=== PATIENT | female | born 1990 | race African-American/Black ===

== ENCOUNTER 2016-09-15 23:13 | Emergency (ER) | payer OTHER, MEDICAID ==
[~2016-09-15] VITALS: Ht 165.1 cm; Wt 54.5 kg
[~2016-09-15 23:13] MED LIST: ESCI10TA PO; LURA40 PO; TRAZ100T4 PO
[2016-09-15 23:16] VITALS: BP 104/55; PULSE 98; RESP 16; TEMP 97.8; O2SAT 100
[2016-09-16] MEDS ORDERED: LURA40 PO (17:51)
[2016-09-16] MEDS ORDERED: LEXA5TAB PO (17:51)
[2016-09-16] MEDS ORDERED: TRAZ100T4 PO (17:51)
== END 2016-09-16 01:06 | disposition left against medical advice (07) ==
LOC: NEPB 23:13
DX: Z53.21 Procedure and treatment not carried out due to patient leaving prior to being seen by health care provider (principal)
CPT/HCPCS: 99281

== ENCOUNTER 2016-09-16 16:08 | Emergency (ER) | payer MEDICAID, OTHER ==
[~2016-09-16] VITALS: Ht 167.6 cm; Wt 55.0 kg
[2016-09-16 16:09] VITALS: BP 114/61; PULSE 102; RESP 14; TEMP 97.9; O2SAT 99
[2016-09-16] MEDS ORDERED: LEXA5TAB PO (17:51)
[2016-09-16] MEDS ORDERED: TRAZ100T4 PO (17:51)
[2016-09-16] MEDS ORDERED: LURA40 PO (17:51)
== END 2016-09-16 18:50 | disposition left against medical advice (07) ==
LOC: NEPB 16:08 → NETRI 18:50
DX: R68.89 Other general symptoms and signs (principal)
CPT/HCPCS: 99281

== ENCOUNTER 2017-01-02 17:03 | Emergency (ER) | payer MEDICAID ==
[~2017-01-02 17:03] MED LIST changes: -ESCI10TA PO; +LEXA5TAB PO
[2017-01-02 17:06] VITALS: BP 116/57; PULSE 86; RESP 15; TEMP 97.7; O2SAT 100
[2017-01-02] MEDS ORDERED: METR500T10 PO (18:06)
--- NOTE | 2017-01-02 18:06 | PD ---
HPI Chief Complaint Spotting Date Seen: January 02, 2017 Travel History International Travel<30 Days: No Contact w/Intl Traveler<30Days: No Known Affected Area: No History of Present Illness HPI 26yo at 19w5d c/o vaginal spotting this am. Saw a pink spot on underwear this am. No care this but was seen at [facility] with a sonogram for dating. Para: 5 : 7 : 1 History Past Medical History Medical History: Denies Significant Hx Obstetric History Obstetric History Spontaneous vaginal delivery 4, section 1 Past Surgical History Narrative Surgical section Surgical History: No Previous Surgery ( section) Social History Alcohol Use: No Tobacco Use: No Substance Abuse: No Allergies-Medications (Allergen,Severity, Reaction): Coded Allergies: No Known Allergies (Verified , 09/16/16) Per pt. Home Meds Reported Medications Trazodone 100 Mg [id number] Mg PO HS #30 TAB Ref 0 09/16/16 Escitalopram (Lexapro)5 Mg Tab5 Mg PO DAILY #30 TAB Ref 0 09/16/16 Lurasidone (Latuda)40 Mg Tab40 Mg PO BID #30 TAB Ref 0 09/16/16 Review of Systems Except as stated in HPI: all other systems reviewed are Neg Physical Exam Vital Signs Date Time Temp Pulse Resp B/P Pulse Ox O2 Delivery O2 Flow Rate FiO2 01/02/17 17:06 97.7 86 15 116/57 100 Narrative GENERAL: Well-nourished, well-developed patient. SKIN: Warm and dry. HEAD: Normocephalic and atraumatic. EYES: No scleral icterus. No injection or drainage. ENT: No nasal drainage noted. Mucous membranes pink. Airway patent. NECK: Supple, trachea midline. No JVD. CARDIOVASCULAR: Regular rate and rhythm without murmurs, gallops, or rubs. RESPIRATORY: Breath sounds equal bilaterally. No accessory muscle use. BREASTS: Bilateral exam showed no masses , no retractions, no nipple discharge. ABDOMEN/GI: Abdomen soft, non-tender, bowel sounds present, no rebound, no guarding Gravid to [20-] weeks size Fundal Height: [-] GENITOURINARY: External Genitalia: intact and normal in appearance BUS glands: [-Normal] Cervix: [-Obvious bacterial vaginosis noted] Dilatation: [-] Visually closed cervix Effacement: [-] Station: [-] Presentation: [-] Membranes: [intact or ruptured] Uterine Contractions: [-] Absent FHT's: 152 Category: [-] Baseline: [-] Reactive: [-] Variability: [-] Decels: [-] EXTREMITIES: No cyanosis or edema. BACK: Nontender without obvious deformity. No CVA tenderness. NEUROLOGICAL: Awake and alert. Motor and sensory grossly within normal limits. Five out of 5 muscle strength in all muscle groups. Normal speech. Data Data Vital Signs Reviewed: Yes MDM Plan 26-year-old female at 19 weeks 2 days with vaginal spotting earlier this morning none apparent at present time. Bacterial vaginosis Gonorrhea and chlamydia cultures were obtained Recommendations for care were given Patient was considering using a salvage grinder for homebirth which I have cautioned her against due to the possibilities of uterine rupture with a previous section Diagnosis Diagnosis: Primary Impression: 19 weeks gestation of Additional Impressions: Vaginal spotting Bacterial vaginosis Disposition: DISCHARGE HOME Scripts Metronidazole 500 Mg [id number] Mg PO BID #14 TAB Ref 0 Prov:Jaymie Ace MD 01/02/17 Jaymie Ace MD January 02, 2017 18:06
[2017-01-02 20:31] LABS: CHLAMYDIA PCR NOT DETECTED (NOT DETECT); NEISSERIA PCR NOT DETECTED (NOT DETECT)
== END 2017-01-02 19:01 | disposition home or self-care (01) ==
LOC: HOBED 17:03
DX: O26.852 Spotting complicating pregnancy, second trimester (principal); O23.592 Infection of other part of genital tract in pregnancy, second trimester; N76.0 Acute vaginitis; B96.89 Other specified bacterial agents as the cause of diseases classified elsewhere; Z3A.19 19 weeks gestation of pregnancy
CPT/HCPCS: 87491; 87591; 99284

== ENCOUNTER 2017-02-22 19:26 | Emergency (ER) | payer MEDICAID ==
[~2017-02-22 19:26] MED LIST changes: +METR500T10 PO
--- NOTE | 2017-02-22 20:11 | PD ---
HPI Chief Complaint Suprapubic pain Date Seen: Feb 22, 2017 Time Seen: 20:06 Travel History International Travel<30 Days: No Contact w/Intl Traveler<30Days: No Known Affected Area: No History of Present Illness HPI 27-year-old female who is at 26 weeks gestation by estimation based on last menstrual cycle comes in complaining of mild suprapubic pain since yesterday. Pain is mostly during urination and decreases in intensity with rest and patient states that it is not contractions. She denies vaginal discharge vaginal bleeding and she has good movement. Patient has a history of 5 prior vaginal deliveries. Last year patient had a twin gestation with a spontaneous vaginal delivery of the first followed by a section for twin B. She has had no care this Para: 5 : 5 History Past Medical History Narrative Medical Bipolar disorder Asthma on no medication Depression a symptomatically this Obstetric History Obstetric History Spontaneous vaginal delivery 3 followed by a vaginal delivery and a for twins Past Surgical History Narrative Surgical section Family History Family History: Negative Social History Alcohol Use: No Tobacco Use: Yes Substance Abuse: No (treated opioid use in the past patient denies at this , patient has smoked marijuana in the past also denies of ) Allergies-Medications (Allergen,Severity, Reaction): Coded Allergies: No Known Allergies (Verified , 09/16/16) Per pt. Home Meds Active Scripts Metronidazole 500 Mg [id number] Mg PO BID #14 TAB Ref 0 Prov:Jaymie Ace MD 01/02/17 Reported Medications Trazodone 100 Mg [id number] Mg PO HS #30 TAB Ref 0 09/16/16 Escitalopram (Lexapro)5 Mg Tab5 Mg PO DAILY #30 TAB Ref 0 09/16/16 Lurasidone (Latuda)40 Mg Tab40 Mg PO BID #30 TAB Ref 0 09/16/16 Review of Systems Except as stated in HPI: all other systems reviewed are Neg Physical Exam Narrative GENERAL: Well-nourished, well-developed patient. SKIN: Warm and dry. HEAD: Normocephalic and atraumatic. EYES: No scleral icterus. No injection or drainage. ENT: No nasal drainage noted. Mucous membranes pink. Airway patent. NECK: Supple, trachea midline. No JVD. CARDIOVASCULAR: Regular rate and rhythm without murmurs, gallops, or rubs. RESPIRATORY: Breath sounds equal bilaterally. No accessory muscle use. ABDOMEN/GI: Abdomen soft, non-tender, bowel sounds present, no rebound, no guarding Gravid to [-26] weeks size Fundal Height: [-] GENITOURINARY: External Genitalia: intact and normal in appearance BUS glands: [-Normal] Cervix: [Posterior-] Dilatation: [-Closed] Effacement: [-Long] Station: [-High] Presentation: [-Cephalic] Membranes: [intact ] Uterine Contractions: [-Absent] FHT's: Category: [1-] Baseline: [145-] Reactive: [Moderate-] Variability: [Moderate-] Decels: [Absent-] EXTREMITIES: No cyanosis or edema. BACK: Nontender without obvious deformity. No CVA tenderness. NEUROLOGICAL: Awake and alert. Motor and sensory grossly within normal limits. Five out of 5 muscle strength in all muscle groups. Normal speech. Data Data Vital Signs Reviewed: Yes Labs Laboratory Tests Test 02/22/17 19:54 Urine Color YELLOW Urine Turbidity CLEAR Urine pH 6.0 Urine Specific [place] 1.014 Urine Protein TRACE mg/dL Urine Glucose (UA) NEG mg/dL Urine Ketones NEG mg/dL Urine Occult Blood NEG Urine Nitrite NEG Urine Bilirubin NEG Urine Urobilinogen LESS THAN 2.0 MG/DL Urine Leukocyte Esterase NEG Urine RBC 1 /hpf Urine WBC 1 /hpf Urine Squamous Epithelial <1 /hpf Cells Urine Mucus FEW /lpf Microscopic Urinalysis Comment CULT NOT INDICATED MDM Plan 27yo at 26 weeks gestation Discomforts of No care - patient given number and flyer for [facility] to initiate care labs drawn Diagnosis Diagnosis: Primary Impression: 26 weeks gestation of Additional Impressions: No care in current in second trimester Previous delivery affecting , antepartum Disposition: 01 DISCHARGE HOME Jaymie Ace MD Feb 22, 2017 20:11
[2017-02-22 20:20] LABS: BLOOD, URINE NEG (NEG); COMMENT (UR) CULT NOT INDICATED; CULTURE IF INDICATED CULT NOT INDICATED; GLUCOSE,URINE NEG (NEG); KETONE, URINE NEG (NEG); MUCUS URINE FEW /lpf (OCC); NITRITE,URINE NEG (NEG); SQUAMOUS EPITHELIAL CELL URINE <1 /hpf (0-5); URINE COLOR YELLOW (YELLW/STRAW)
[2017-02-22 20:24] LABS: AMPHETAMINE, URINE NEG (NEG); BARBITURATES, URINE NEG (NEG); COCAINE, URINE NEG (NEG)
[2017-02-22 21:05] LABS: AUTOMATED NEUTROPHIL # 5.6 TH/MM3 (1.8-7.7); BASOPHIL % 0.2 % (0.0-2.0); EOSINOPHIL # 0.1 TH/MM3 (0-0.4); EOSINOPHIL % 1.7 % (0.0-4.0); HEMATOCRIT 23.9 % (35.0-46.0); HEMO FLAGS DIFF FINAL; LYMPH % 19.8 % (9.0-44.0); LYMPHOCYTE # 1.6 TH/MM3 (1.0-4.8); MEAN CELL VOLUME 74.1 FL (80.0-100.0); MEAN CORPUSCULAR HEMOGLOBIN 24.1 PG (27.0-34.0); MEAN CORPUSCULAR HGB CONC 32.6 % (32.0-36.0); MONO % 9.8 % (0.0-8.0); NEUT % 68.5 % (16.0-70.0); PLATELET COUNT 239 TH/MM3 (150-450); RED BLOOD COUNT 3.23 MIL/MM3 (4.00-5.30); RED CELL DISTRIBUTION WIDTH 17.1 % (11.6-17.2); WHITE BLOOD COUNT 8.1 TH/MM3 (4.0-11.0)
[2017-02-22 21:37] LABS: RUBELLA IGG ANTIBODY 24.5 IU/mL (10.0-500.0); RUBELLA STATUS IMMUNE (IMMUNE)
[2017-02-25 14:45] LABS: RAPID PLASMA REAGIN SCREEN NON-REACTIVE (NON-REACTVE)
== END 2017-02-22 20:50 | disposition home or self-care (01) ==
LOC: HOBED 19:26
DX: O09.32 Supervision of pregnancy with insufficient antenatal care, second trimester (principal); O34.219 Maternal care for unspecified type scar from previous cesarean delivery; O26.892 Other specified pregnancy related conditions, second trimester; R10.2 Pelvic and perineal pain; Z72.0 Tobacco use; Z86.59 Personal history of other mental and behavioral disorders; Z87.09 Personal history of other diseases of the respiratory system; Z3A.26 26 weeks gestation of pregnancy
CPT/HCPCS: 80074; 80307; 81001; 85025; 86592; 86703; 86762; 86850; 86900; 86901; 99282

== ENCOUNTER 2017-03-15 23:41 | Emergency (ER) | payer MEDICAID ==
--- NOTE | 2017-03-16 00:13 | PD ---
HPI Chief Complaint cramping Date Seen: Mar 16, 2017 Travel History International Travel<30 Days: No Contact w/Intl Traveler<30Days: No History of Present Illness HPI 27-year-old female who is at 30w2d by LMP and a dating [facility] at [facility]. No care. seen in [facility] and labs obtained. Patient presents with c/o cramping. Denies VB, LOF. +very active fetus Para: 5 : 5 History Past Medical History Narrative Medical Bipolar/ADHA Depression Asthma Eczema Tattoo Piercing Substance Abuse Anemia Obstetric History Obstetric History 2011 @ 39 weeks 2012 @ 37 weeks 2014 @ 36 weeks 2016 with for second twin cord prolapse @ 29 weeks Past Surgical History Narrative Surgical 2016 Family History Family History: Negative Social History Alcohol Use: No Tobacco Use: Yes (history of cig, denies current usage) Substance Abuse: Yes (history of THC, denies current usage) Allergies-Medications (Allergen,Severity, Reaction): Coded Allergies: No Known Allergies (Verified , 09/16/16) Per pt. Home Meds Active Scripts Metronidazole 500 Mg [id number] Mg PO BID #14 TAB Ref 0 Prov:Jaymie Ace MD 01/02/17 Reported Medications Trazodone 100 Mg [id number] Mg PO HS #30 TAB Ref 0 09/16/16 Escitalopram (Lexapro)5 Mg Tab5 Mg PO DAILY #30 TAB Ref 0 09/16/16 Lurasidone (Latuda)40 Mg Tab40 Mg PO BID #30 TAB Ref 0 09/16/16 Review of Systems General / Constitutional: No: Fever, Chills Eyes: No: Blurred Vision, Visual changes HENT: No: Headaches, Lightheadedness Cardiovascular: No: Chest Pain or Discomfort, Palpitations Respiratory: No: Cough, Short of Breath Gastrointestinal: Abdominal Pain (cramping), No: Nausea, Vomiting, Diarrhea, Constipation, Loss of Appetite Genitourinary: No: Urgency, Frequency, Dysuria, Discharge, Vaginal Bleeding Musculoskeletal: No: Limited ROM, Weakness Skin: No Rash, No Itching, No Lesions Neurologic: No: Weakness, Coordination Problem Physical Exam Narrative GENERAL: Well-nourished, well-developed patient. NAD SKIN: Warm and dry. HEAD: Normocephalic and atraumatic. EYES: No scleral icterus. No injection or drainage. ENT: No nasal drainage noted. Mucous membranes pink. Airway patent. NECK: trachea midline. No JVD. CARDIOVASCULAR: Regular rate RESPIRATORY: No accessory muscle use. ABDOMEN/GI: Abdomen soft, non-tender, no rebound, no guarding Gravid GENITOURINARY: External Genitalia: intact and normal in appearance SVE: Internal Os closed, External Os 1cm/60%/-2, intact, vertx ffn NEG FHT's: Category: I, reassuring for GA Baseline: 120 Variability: mod Decels: [-] EXTREMITIES: No cyanosis or edema. BACK: Nontender without obvious deformity. No CVA tenderness. NEUROLOGICAL: Awake and alert. Motor and sensory grossly within normal limits. . Normal speech. Data Data Vital Signs Reviewed: Yes Labs Laboratory Tests Test 03/16/17 00:15 Urine Color YELLOW (YELLW/STRAW) Urine Turbidity HAZY (CLEAR) Urine pH 7.0 (5.0-8.5) Urine Specific [place] 1.024 (1.002-1.035) Urine Protein TRACE mg/dL (NEG-TRACE) Urine Glucose (UA) NEG mg/dL (NEG) Urine Ketones NEG mg/dL (NEG) Urine Occult Blood NEG (NEG) Urine Nitrite NEG (NEG) Urine Bilirubin NEG (NEG) Urine Urobilinogen 2.0 MG/DL (LESS THAN 2.0) Urine Leukocyte Esterase MOD (NEG) Urine RBC 1 /hpf (0-3) Urine WBC 2 /hpf (0-5) Urine Squamous Epithelial 2 /hpf (0-5) Cells Urine Amorphous Sediment RARE Urine Bacteria RARE /hpf (NONE) Urine Mucus FEW /lpf (OCC) Microscopic Urinalysis Comment CULT NOT INDICATED Fibronectin NEGATIVE (NEGATIVE) MDM Narrative Course / MDM 30 weeks Only one contraction noted during visit FFn negative No PTL FHT reassuring for GA Hx of and 4 . Desires JAIR No care. labs obtained last [facility] visit. Anemia Plan D/c home PTL precautions Has new ob visit schedule this [facility] at [facility] Diagnosis Diagnosis: Primary Impression: contractions Additional Impression: 30 weeks gestation of Disposition: DISCHARGE HOME Condition: Good WiRosario turner MD Mar 16, 2017 00:13
[2017-03-16 00:45] LABS: BACTERIA, URINE RARE /hpf; BLOOD, URINE NEG (NEG); COMMENT (UR) CULT NOT INDICATED; CULTURE IF INDICATED CULT NOT INDICATED; GLUCOSE,URINE NEG (NEG); KETONE, URINE NEG (NEG); MUCUS URINE FEW /lpf (OCC); NITRITE,URINE NEG (NEG); SQUAMOUS EPITHELIAL CELL URINE 2 /hpf (0-5); URINE COLOR YELLOW (YELLW/STRAW)
== END 2017-03-16 02:30 | disposition home or self-care (01) ==
LOC: HOBED 23:41
DX: O47.03 False labor before 37 completed weeks of gestation, third trimester (principal); Z3A.30 30 weeks gestation of pregnancy
CPT/HCPCS: 81001; 82731; 99284

== ENCOUNTER 2017-04-21 12:13 | Emergency (ER) | payer MEDICAID ==
[~2017-04-21 12:13] MED LIST changes: +ALBUAER3 INH; +FERRTAB2 PO; -LEXA5TAB PO; -LURA40 PO; -METR500T10 PO; -TRAZ100T4 PO
[2017-04-21] MEDS ORDERED: FERRTAB2 PO (12:58)
--- NOTE | 2017-04-21 13:15 | PD ---
HPI Travel History International Travel<30 Days: No Contact w/Intl Traveler<30Days: No Known Affected Area: No History of Present Illness HPI This patient is a 27-year-old 5 para 5 previous twins EDC is May 27, 2017 presently at 34 weeks and 6 days she presents the chief complaint of bleeding which began about an hour ago and contractions Contractions began earlier this morning they're described as crampy lower abdominal pain in the suprapubic area low back and extending into her upper legs the bleeding she describes as a pink discharge that she saw on the tissue when she wiped no bright red vaginal bleeding did not have to put on a pad no rupture of membranes the baby is active no nausea no vomiting no diarrhea or constipation no fever no chills Positive urgency and frequency care with [facility] course is significant for a history of anemia Twins were each weighing 3 pounds second one required for prolapsed cord Low segment transverse and she desires a with this History Past Medical History Narrative Medical Right no known drug allergies History of asthma uses an inhaler Obstetric History Obstetric History Normal spontaneous vaginal delivery 4 Second twin born by for prolapsed cord Past Surgical History Narrative Surgical Family History Narrative Family History Diabetes Social History Alcohol Use: No Tobacco Use: Yes (smokes a half a pack of cigarettes per day) Substance Abuse: No Allergies-Medications (Allergen,Severity, Reaction): Coded Allergies: No Known Allergies (Verified , 04/21/17) Per pt. Home Meds Active Scripts Albuterol 8.5 GM Inh (Proair Hfa 8.5 GM Inh) 90 Mcg/Act Aer, 2 PUFF INH Q4-6H Y for SHORTNESS OF BREATH, #1 INHALER 0 Refills 108 mcg/actuation Prov:Debi Longoria 04/18/17 Multi-Vit/Iron-Folic [id number] C (Ferralet) 90-1-0.012-120 mg Tab, 1 CAPLET PO BID, #60 CAPLET Prov:Debi LongoriaP 04/18/17 Reported Medications Multi-Vit/Iron-Folic [id number] C (Ferralet) 90-1-0.012-120 mg Tab, 1 TAB PO BID 04/21/17 Discontinued Scripts W/O Vit A W/ Fe Carbo (Prenate Mini 18-0.6-0.4-350 mg) 1 Cap Cap Prov:Devyn Cannon MD 03/20/17 Review of Systems General / Constitutional: No: Fever, Weight Gain, Weight Loss, Chills, Other Eyes: No: Diploplia, Blurred Vision, Visual changes, Pain, Photophobia, Other HENT: No: Headaches, Vertigo, Dental Difficulties, Lightheadedness, Other Cardiovascular: No: Irregular Rhythm, Chest Pain or Discomfort, Palpitations, Tachycardia, Syncope, Varicosities, Edema, Cyanosis, Other Respiratory: No: Cough, Short of Breath, Wheezing, Other Gastrointestinal: Abdominal Pain Genitourinary: Urgency, Frequency, Oliguria, Hesitancy, Other (pinkish discharge) Musculoskeletal: Cramping Skin: No Rash, No Itching, No Dryness, No Lumps, No Change in Pigmentation, No Change in Nails, No Alopecia, No Lesions, No Breast Lumps, No Breast Tenderness , No Breast Swelling, No Other Psychiatric: No: Anxiety, Depression, Suicidal Ideations, Disorder of Thought, Mood Disorder, Substance Abuse, Homicidal Ideation, Other Physical Exam Narrative GENERAL: Well-nourished, well-developed patient. Alert oriented 3 and cooperative in no acute distress SKIN: Warm and dry. HEAD: Normocephalic and atraumatic. EYES: No scleral icterus. No injection or drainage. ENT: No nasal drainage noted. Mucous membranes pink. Airway patent. NECK: Supple, trachea midline. No JVD. CARDIOVASCULAR: Regular rate and rhythm without murmurs, gallops, or rubs. RESPIRATORY: Breath sounds equal bilaterally. No accessory muscle use. ABDOMEN/GI: Abdomen soft, non-tender, bowel sounds present, no rebound, no guarding gravid consistent with stated gestational age of 35 weeks soft nontender no palpable contractions no epigastric or right upper quadrant tenderness Gravid to [-] weeks size 35 Fundal Height: [-] GENITOURINARY: Speculum exam is done no blood in the vagina thin the discharge cervix is grossly thickened closed no fluid External Genitalia: intact and normal in appearance BUS glands: [-] Cervix: [-] Thick slightly midline Dilatation: [-] 1 cm Effacement: [-] 0 Station: [-] Ballotable Presentation: [-] Vertex Membranes: [intact Uterine Contractions: [-] Uterine irritability FHT's: Category: [-] 1 Baseline: [-] 140 Reactive: [-] + Variability: [-] Moderate Decels: [-] 0 EXTREMITIES: No cyanosis or edema. 2+ reflexes BACK: Nontender without obvious deformity. No CVA tenderness. NEUROLOGICAL: Awake and alert. Motor and sensory grossly within normal limits. Five out of 5 muscle strength in all muscle groups. Normal speech. Data Data Vital Signs Reviewed: Yes (vital signs are stable blood pressure 106/53 temperature is 98.1 pulse is 83) Orders Orders Urinalysis - C+S If Indicated (04/21/17 12:22) Labs Laboratory Tests Test 04/21/17 12:22 [facility] Medical Record Reviewed: Yes Interpretation(s) 27-year-old 5 para 5 at 34 weeks and 6 days Not in labor History of a previous low segment transverse section Rule out UTI [place] Hemorrhagic cystitis Narrative Course / MDM Patient feeling somewhat better Urinalysis shows moderate amount of blood rbc's WBCs large amount of leukocyte esterase Indicating a possible hemorrhagic cystitis Will treat with Keflex 500 mg by mouth 3 times a day for 7 days Discharge home By mouth fluid hydration Warm tub baths kick counts Follow-up with [facility] in the a.m. Reexamination of the cervix demonstrates no change She has a category 1 tracing no contractions Bedside ultrasound was done it is a vertex presentation BPD measures 8.45 that equals 34 weeks Anterior grade 2-3 placenta CARA is 9 Positive breathing Positive flexion Positive tone Baseline heart rate of 150 on ultrasound Three-vessel cord No evidence of abruption 10 out of 10 biophysical profile Plan External monitoring By mouth fluid hydration Urinalysis Diagnosis Diagnosis: Primary Impression: 34 weeks gestation of Additional Impression: Hemorrhagic cystitis Disposition: DISCHARGE HOME Condition: Stable Shari Valentino MD Apr 21, 2017 13:15
[2017-04-21 13:32] LABS: BACTERIA, URINE RARE /hpf; BLOOD, URINE MOD (NEG); GLUCOSE,URINE NEG (NEG); KETONE, URINE NEG (NEG); MUCUS URINE FEW /lpf (OCC); NITRITE,URINE NEG (NEG); SQUAMOUS EPITHELIAL CELL URINE 3 /hpf (0-5); URINE COLOR YELLOW (YELLW/STRAW)
[2017-04-21 13:33] LABS: COMMENT (UR) CULT NOT INDICATED; CULTURE IF INDICATED CULT NOT INDICATED
== END 2017-04-21 14:25 | disposition home or self-care (01) ==
LOC: HOBED 12:13
DX: O47.03 False labor before 37 completed weeks of gestation, third trimester (principal); O23.13 Infections of bladder in pregnancy, third trimester; Z3A.34 34 weeks gestation of pregnancy
CPT/HCPCS: 59025; 76815; 80307; 81001

== ENCOUNTER 2017-04-28 17:39 | Inpatient (IN) | payer MEDICAID ==
[2017-04-28] VITALS (10 sets, daily range): BP systolic 96–119; BP diastolic 49–88; PULSE 64–102; RESP 16–18; TEMP 97.9
[~2017-04-28] VITALS: Ht 162.6 cm; Wt 65.8 kg
[2017-04-28] MEDS ORDERED: OXYTOCIN 30 UNITS-500ML PREMIX 500 ML ONE (18:03)
--- NOTE | 2017-04-28 18:12 | PD ---
HPI Travel History International Travel<30 Days: No Contact w/Intl Traveler<30Days: No (Obdulia Quintanilla MD R1) History of Present Illness HPI 27 yr old at 35 weeks and 6 days presented to OB ED with complaints of contractions. Found to be at 9 cm on cervical exam with bulging bag. AROM was preformed. Admitted directly and delivered precipitously. See delivery note for delivery details. care with [facility] course is significant for a history of anemia. She also reports a hx of asthma for which she takes albuterol as needed. She had no other complications during this to report. Twins were each weighing 3 pounds second one required for prolapsed cord (Obdulia Quintanilla MD) History Past Medical History Narrative Medical History of Asthma Anemia (Obdulia Quintanilla MD) Obstetric History Obstetric History Normal spontaneous vaginal delivery 4 Second twin born by for prolapsed cord (Obdulia Quintanilla MD) Past Surgical History Narrative Surgical (Odbulia Quintanilla MD) Family History Narrative Family History Diabetes (Obdulia Quintanilla MD) Social History Narrative Social History No alcohol use Smokes 2-3 cigarettes per day per patient, per EMR smokes half a pack per day Denies illicit drug use (Obdulia Quintanilla MD) Allergies-Medications (Allergen,Severity, Reaction): Coded Allergies: No Known Allergies (Verified , 04/28/17) Per pt. Home Meds Active Scripts Albuterol 8.5 GM Inh (Proair Hfa 8.5 GM Inh) 90 Mcg/Act Aer, 2 PUFF INH Q4-6H Y for SHORTNESS OF BREATH, #1 INHALER 0 Refills 108 mcg/actuation Prov:Debi Longoria 04/18/17 Multi-Vit/Iron-Folic Dsyk-N59-Ghe C (Ferralet) 90-1-0.012-120 mg Tab, 1 CAPLET PO BID, #60 CAPLET Prov:Debi Longoria 04/18/17 Reported Medications Multi-Vit/Iron-Folic [id number] C (Ferralet) 90-1-0.012-120 mg Tab, 1 TAB PO BID 04/21/17 Discontinued Scripts W/O Vit A W/ Fe Carbo (Prenate Mini 18-0.6-0.4-350 mg) 1 Cap Cap Prov:Devyn Cannon MD 03/20/17 Review of Systems Except as stated in HPI: all other systems reviewed are Neg (Obdulia Quintanilla MD R1) Physical Exam Narrative GENERAL: Well-nourished, well-developed patient. SKIN: Warm and dry. HEAD: Normocephalic and atraumatic. EYES: No scleral icterus. No injection or drainage. ENT: No nasal drainage noted. Mucous membranes pink. Airway patent. NECK: Supple, trachea midline. No JVD. CARDIOVASCULAR: Warm and well perfused. RESPIRATORY: No accessory muscle use. ABDOMEN/GI: Gravid to 36 weeks size GENITOURINARY: External Genitalia: intact and normal in appearance Cervix: [-] Dilatation: [9] Effacement: [-] Station: [-] Presentation: [-] Membranes: s/p AROM Uterine Contractions: [-] FHT's: Category: [-] Baseline: [-] Reactive: [-] Variability: [-] Decels: [-] EXTREMITIES: No edema. NEUROLOGICAL: Awake and alert. Motor and sensory grossly within normal limits. Normal speech. (Obdulia Quintanilla MD R1) Data Data Orders Orders Ob (2e) Additional Admit Info (04/28/17 17:51) Oxytocin 30 Units-500ml Premix (Pitocin (04/28/17 18:03) Vital Signs (Adult) .Per protocol (04/28/17 18:02) Heart (04/28/17 18:02) Amnioinfusion (04/28/17 18:02) Urinary Catheter Management .ONCE (04/28/17 18:02) Complete Blood Count With Diff (04/28/17 18:02) Hold Clot (04/28/17 18:02) Abo/Rh Blood Type (04/28/17 18:02) Urinalysis - C+S If Indicated (04/28/17 18:02) Resp Oxygen Non Rebreathe Mask (04/28/17 ) ^ Epidural / Intrathecal Infus (04/28/17 18:02) Specimen To Be Collected PRN (04/28/17 18:02) Admit To Inpatient (04/28/17 ) (Obdulia Quintanilla MD R1) MDM Medical Record Reviewed: Yes Plan 27 yr old at 35 weeks and 6 days presented to OB ED with complaints of contractions. - Patient directly admitted to L & D. - labs reviewed: GBS unknown, Hep panel neg, RPR non-reactive, GC/ chlamydia neg, HIV neg, Rubella immune - Patient is now s/p with no complications (Obdulia Quintanilla MD R1) Attending Attestation Patient seen and evaluated with resident under direct supervision, agree with assessment and plan. (Gaurang York MD) Diagnosis Diagnosis: Primary Impression: 36 weeks gestation of Obdulia Quintanilla MD R1 Apr 28, 2017 18:12 Gaurang York MD Apr 28, 2017 19:49
--- NOTE | 2017-04-28 18:14 | PD.OB.DELI ---
Weeks gestation: 34 Gest age assessed date: Apr 28, 2017 Gest age assessed time: 18:00 Pt started active labor?: Yes Medical induction of labor?: No Artificial rupture of membrane: Yes Anesthesia: None Episiotomy: None Vaginal Delivery: Normal, Precipitous Presentation: Occiput anterior Nuchal Cord: None Delayed cord clamping (45 sec): Yes : Female Delivery date: Apr 28, 2017 Delivery time: 18:01 One Minute : 9 Weight: 3195 grams Placenta: Spontaneous delivery, Intact, 3 vessel cord Laceration: No lacerations Estimated blood loss: < 500 cc Additional Information 27 year old delivered vaginally over an intact perineum at 35 weeks and 6 days. Delivery was precipitous. No vaginal lacerations. Placenta was delivered spontaneously, intact, with a 3-vessel cord. Apgars were 9/9. weight 3195 grams. EBL < 500 cc. (Oscar Chua MD R2) Additional Information I attended and assisted with this delivery. (Gaurang York MD) Oscar Chua MD R2 Apr 28, 2017 18:14 Gaurang York MD Apr 28, 2017 19:50
[2017-04-28] MEDS ORDERED: OXYTOCIN 30 UNITS-500ML PREMIX 500 ML IV SCH (18:15)
[2017-04-28] MEDS ORDERED: DIPHTH/TETANUS/ACEL PERTUSSIS (BOOSTER) 0.5 ML VIAL/PFS IM ONE (18:15)
[2017-04-28] MEDS ORDERED: WITCH HAZEL 50%/GLYCERIN 12.5% 40 PAD JAR TOPICAL PRN (18:15)
[2017-04-28] MEDS ORDERED: ONDANSETRON ODT 4 MG TAB PO PRN (18:15)
[2017-04-28] MEDS ORDERED: ZOLPIDEM TARTRATE 5 MG TAB PO PRN (18:15)
[2017-04-28] MEDS ORDERED: ACETAMINOPHEN 325 MG TAB PO PRN (18:15)
[2017-04-28] MEDS ORDERED: MEASLES, MUMPS, RUBELLA VACCINE 0.5 ML VIAL SQ ONE (18:15)
[2017-04-28] MEDS ORDERED: SODIUM CHLORIDE 0.9% FLUSH 10 ML FLUSH IV FLUSH PRN (18:15)
[2017-04-28] MEDS ORDERED: ALUMINUM/MAGNESIUM/SIMETH 30 ML CUP PO PRN (18:15)
[2017-04-28] MEDS ORDERED: BENZOCAINE 20% TOPICAL SPRAY 60 ML CAN TOPICAL PRN (18:15)
[2017-04-28 18:22] LABS: BASOPHIL # 0.1 TH/MM3 (0-0.2); BASOPHIL % 0.6 % (0.0-2.0); EOSINOPHIL # 0.1 TH/MM3 (0-0.4); EOSINOPHIL % 0.5 % (0.0-4.0); HEMATOCRIT 29.6 % (35.0-46.0); HEMO FLAGS DIFF FINAL; LYMPH % 18.1 % (9.0-44.0); LYMPHOCYTE # 1.9 TH/MM3 (1.0-4.8); MEAN CELL VOLUME 69.5 FL (80.0-100.0); MEAN CORPUSCULAR HEMOGLOBIN 22.1 PG (27.0-34.0); MEAN CORPUSCULAR HGB CONC 31.8 % (32.0-36.0); MONO % 5.5 % (0.0-8.0); NEUT % 75.3 % (16.0-70.0); PLATELET COUNT 305 TH/MM3 (150-450); RED BLOOD COUNT 4.26 MIL/MM3 (4.00-5.30); RED CELL DISTRIBUTION WIDTH 19.5 % (11.6-17.2); WHITE BLOOD COUNT 10.6 TH/MM3 (4.0-11.0)
[2017-04-28 18:23] LABS: BLOOD, URINE MOD (NEG); COMMENT (UR) CULT NOT INDICATED; CULTURE IF INDICATED CULT NOT INDICATED; GLUCOSE,URINE NEG (NEG); KETONE, URINE 40 mg/dL (NEG); NITRITE,URINE NEG (NEG); PH, URINE 6.5 (5.0-8.5); SQUAMOUS EPITHELIAL CELL URINE 2 /hpf (0-5); URINE COLOR LIGHT-YELLOW (YELLW/STRAW)
[2017-04-28] MEDS: oxyCODONE/ACETAMINOPHEN 5 MG/325 MG TAB PO PRN ×2 (18:39→22:44)
[2017-04-28] MEDS: IBUPROFEN 600 MG TAB PO PRN (18:40)
--- NOTE | 2017-04-28 18:44 | HHI.HP ---
HPI Travel History International Travel<30 Days: No Contact w/Intl Traveler<30Days: No (Obdulia Quintanilla MD R1) History of Present Illness HPI 27 yr old at 35 weeks and 6 days presented to OB ED with complaints of contractions. Found to be at 9 cm on cervical exam with bulging bag. AROM was preformed. Admitted directly and delivered precipitously. See delivery note for delivery details. care with care for women course is significant for a history of anemia. She also reports a hx of asthma for which she takes albuterol as needed. She had no other complications during this to report. Twins were each weighing 3 pounds second one required for prolapsed cord (Obdulia Quintanilla MD) History Past Medical History Narrative Medical History of Asthma (uses inhaler) Anemia (Obdulia Quintanilla MD) Obstetric History Obstetric History Normal spontaneous vaginal delivery 4 Second twin born by for prolapsed cord (Obdulia Quintanilla MD) Past Surgical History Narrative Surgical (Obdulia Quintanilla MD) Family History Narrative Family History Diabetes (Obdulia Quintanilla MD) Social History Narrative Social History No alcohol use Smokes 2-3 cigarettes per day per patient, per EMR smokes half a pack per day Denies illicit drug use (Obdulia Quintanilla MD) Allergies-Medications (Allergen,Severity, Reaction): Coded Allergies: No Known Allergies (Verified , 04/28/17) Per pt. Home Meds Active Scripts Albuterol 8.5 GM Inh (Proair Hfa 8.5 GM Inh) 90 Mcg/Act Aer, 2 PUFF INH Q4-6H Y for SHORTNESS OF BREATH, #1 INHALER 0 Refills 108 mcg/actuation Prov:Debi Longoria 04/18/17 Multi-Vit/Iron-Folic Uomd-B37-Jsw C (Ferralet) 90-1-0.012-120 mg Tab, 1 CAPLET PO BID, #60 CAPLET Prov:Debi Longoria 04/18/17 Reported Medications Multi-Vit/Iron-Folic Fmdk-B26-Tya C (Ferralet) 90-1-0.012-120 mg Tab, 1 TAB PO BID 04/21/17 Discontinued Scripts W/O Vit A W/ Fe Carbo (Prenate Mini 18-0.6-0.4-350 mg) 1 Cap Cap Prov:Devyn Cannon MD 03/20/17 Physical Exam Vital Signs Date Time Temp Pulse Resp B/P (MAP) Pulse Ox O2 Delivery O2 Flow Rate FiO2 04/28/17 18:20 16 04/28/17 18:16 84 96/80 (85) 04/28/17 18:11 102 110/88 (95) Narrative GENERAL: Well-nourished, well-developed patient. SKIN: Warm and dry. HEAD: Normocephalic and atraumatic. EYES: No scleral icterus. No injection or drainage. ENT: No nasal drainage noted. Mucous membranes pink. Airway patent. NECK: Supple, trachea midline. No JVD. CARDIOVASCULAR: Warm and well perfused. RESPIRATORY: No accessory muscle use. ABDOMEN/GI: Gravid to 36 weeks size GENITOURINARY: External Genitalia: intact and normal in appearance Cervix: [-] Dilatation: [9] Effacement: [-] Station: [-] Presentation: [-] Membranes: s/p AROM Uterine Contractions: [-] FHT's: Category: [-] Baseline: [-] Reactive: [-] Variability: [-] Decels: [-] EXTREMITIES: No edema. NEUROLOGICAL: Awake and alert. Motor and sensory grossly within normal limits. Normal speech. (Obdulia Quintanilla MD R1) Caprini VTE Risk Assessment Caprini VTE Risk Assessment: No/Low Risk (score <= 1) Caprini Risk Assessment Model Point Value = 1 Point Value = 2 Point Value = 3 Point Value = 5 Age 41-60 Minor surgery BMI > 25 kg/m2 Swollen legs Varicose veins or History of unexplained or recurrent spontaneous Oral contraceptives or hormone replacement Sepsis (< 1 month) Serious lung disease, including pneumonia (< 1 month) Abnormal pulmonary function Acute myocardial infarction Congestive heart failure (< 1 month) History of inflammatory bowel disease Medical patient at bed rest Age 61-74 Arthroscopic surgery Major open surgery (> 45 min) Laparoscopic surgery (> 45 min) Malignancy Confined to bed (> 72 hours) Immobilizing plaster cast Central venous access Age >= 75 History of VTE Family history of VTE Factor V Leiden Prothrombin [id number] Lupus anticoagulant Anticardiolipin antibodies Elevated serum homocysteine Heparin-induced thrombocytopenia Other congenital or acquired thrombophilia Stroke (< 1 month) Elective arthroplasty Hip, pelvis, or leg fracture Acute spinal cord injury (< 1 month) Prophylaxis Regimen Total Risk Factor Score Risk Level Prophylaxis Regimen 0-1 Low Early ambulation 2 Moderate Order ONE of the following: *Sequential Compression Device (SCD) *Heparin 5000 units SQ BID 3-4 Higher Order ONE of the following medications: *Heparin 5000 units SQ TID *Enoxaparin/Lovenox 40 mg SQ daily (WT < 150 kg, CrCl > 30 mL/min) *Enoxaparin/Lovenox 30 mg SQ daily (WT < 150 kg, CrCl > 10-29 mL/min) *Enoxaparin/Lovenox 30 mg SQ BID (WT < 150 kg, CrCl > 30 mL/min) AND/OR *Sequential Compression Device (SCD) 5 or more Highest Order ONE of the following medications: *Heparin 5000 units SQ TID (Preferred with Epidurals) *Enoxaparin/Lovenox 40 mg SQ daily (WT < 150 kg, CrCl > 30 mL/min) *Enoxaparin/Lovenox 30 mg SQ daily (WT < 150 kg, CrCl > 10-29 mL/min) *Enoxaparin/Lovenox 30 mg SQ BID (WT < 150 kg, CrCl > 30 mL/min) AND *Sequential Compression Device (SCD) (Obdulia Quintanilla MD R1) Data Data Orders Orders Ob (2e) Additional Admit Info (04/28/17 17:51) Oxytocin 30 Units-500ml Premix (Pitocin (04/28/17 18:03) Vital Signs (Adult) .Per protocol (04/28/17 18:02) Heart (04/28/17 18:02) Amnioinfusion (04/28/17 18:02) Urinary Catheter Management .ONCE (04/28/17 18:02) Complete Blood Count With Diff (04/28/17 18:02) Hold Clot (04/28/17 18:02) Abo/Rh Blood Type (04/28/17 18:02) Urinalysis - C+S If Indicated (04/28/17 18:02) Resp Oxygen Non Rebreathe Mask (04/28/17 ) ^ Epidural / Intrathecal Infus (04/28/17 18:02) Specimen To Be Collected PRN (04/28/17 18:02) Admit To Inpatient (04/28/17 ) Vital Signs (Adult) .QSHIFT (04/28/17 18:14) Activity Oob Ad Skylar (04/28/17 18:14) Ice / Cold Pack PRN (04/28/17 18:14) Discontinue Iv (04/28/17 18:14) Sitz Bath PRN (04/28/17 18:14) ^ Massage (04/28/17 18:14) ^ Rhogam (04/28/17 18:14) Urinary Catheter Management .PRN (04/28/17 18:14) Diet Regular Basic (04/28/17 Dinner) Sodium Chloride 0.9% Flush (Ns Flush) (04/28/17 21:00) Sodium Chloride 0.9% Flush (Ns Flush) (04/28/17 18:15) Oxytocin 30 Units-500ml Premix (Pitocin (04/28/17 18:15) Acetaminophen (Tylenol) (04/28/17 18:15) Ibuprofen (Motrin) (04/28/17 18:15) Oxycodone-Acetamin 5-325 Mg (Percocet (04/28/17 18:15) Oxycodone-Acetamin 5-325 Mg (Percocet (04/28/17 18:15) Benzocaine 20% Top Spr (Americaine 20% T (04/28/17 18:15) Witch Malinda-Glycerin Pad (Tucks Pads) (04/28/17 18:15) Docusate Sodium-Senna (Rosamaria-Colace) (04/28/17 18:15) Zolpidem (Ambien) (04/28/17 18:15) Al-Mag Hy-Si 40-40-4 Mg/Ml Liq (Mag-Al P (04/28/17 18:15) Ondansetron Odt (Zofran Odt) (04/28/17 18:15) Eufuhsp-Ivjyh-Chsekwf Inj (M-M-R Ii Inj) (04/28/17 18:15) Libk-Rnk-Phqfwv (Booster) Inj (Boostrix (04/28/17 18:15) Labs Laboratory Tests Test 04/28/17 17:35 White Blood Count 10.6 Red Blood Count 4.26 Hemoglobin 9.4 Hematocrit 29.6 Mean Corpuscular Volume 69.5 Mean Corpuscular Hemoglobin 22.1 Mean Corpuscular Hemoglobin Concent 31.8 Red Cell Distribution Width 19.5 Platelet Count 305 Mean Platelet Volume 7.8 Neutrophils (%) (Auto) 75.3 Lymphocytes (%) (Auto) 18.1 Monocytes (%) (Auto) 5.5 Eosinophils (%) (Auto) 0.5 Basophils (%) (Auto) 0.6 Neutrophils # (Auto) 8.0 Lymphocytes # (Auto) 1.9 Monocytes # (Auto) 0.6 Eosinophils # (Auto) 0.1 Basophils # (Auto) 0.1 CBC Comment DIFF FINAL Differential Comment Urine Color LIGHT-YELLOW Urine Turbidity CLEAR Urine pH 6.5 Urine Specific [place] 1.008 Urine Protein NEG Urine Glucose (UA) NEG Urine Ketones 40 Urine Occult Blood MOD Urine Nitrite NEG Urine Bilirubin NEG Urine Urobilinogen LESS THAN 2.0 Urine Leukocyte Esterase LARGE Urine RBC 1 Urine WBC 4 Urine Squamous Epithelial Cells 2 Microscopic Urinalysis Comment CULT NOT INDICATED (Obdulia Quintanilla MD R1) Assessment/Plan Assessment and Plan 27 yr old at 35 weeks and 6 days presented to OB ED with complaints of contractions. - Patient directly admitted to L & D. - labs reviewed: GBS unknown, Hep panel neg, RPR non-reactive, GC/ chlamydia neg, HIV neg, Rubella immune - Patient is now s/p with no complications (Obdulia Quintanilla MD R1) Attending Attestation Patient seen and evaluated with resident under direct supervision, agree with assessment and plan. (Gaurang York MD) Obdulia Quintanilla MD R1 Apr 28, 2017 18:44 Gauragn York MD Apr 28, 2017 19:47
[2017-04-28] MEDS ORDERED: SODIUM CHLORIDE 0.9% FLUSH 10 ML FLUSH IV FLUSH SCH (21:00)
[2017-04-29] MEDS: oxyCODONE/ACETAMINOPHEN 5 MG/325 MG TAB PO PRN ×4 (03:55→20:43)
[2017-04-29] MEDS: IBUPROFEN 600 MG TAB PO PRN ×4 (03:55→20:43)
[2017-04-29 07:45] VITALS: BP 102/63; PULSE 71; RESP 18; TEMP 97.9
--- NOTE | 2017-04-29 08:32 | HHI.OB ---
Subjective Post Day: 1 Remarks day # 1 AFVSS overnight. Decreased lochia. Denies dysuria. No breast tenderness. She is feeding the baby via bottle. Appetite good. No nausea or vomiting. Ambulating well. Denies calf pain or shortness of breath. Otherwise, she is doing well this morning and has no other complaints. (Isidoro Sage MD R1) Remarks Patient seen and evaluated with resident under direct supervision, agree with assessment and plan. (Gaurang York MD) Objective Vitals/I&O Vital Signs Date Time Temp Pulse Resp B/P (MAP) Pulse Ox O2 Delivery O2 Flow Rate FiO2 04/28/17 20:50 97.9 94 18 97/56 (70) 04/28/17 19:15 64 116/69 (85) 04/28/17 19:01 66 119/66 (83) 04/28/17 18:49 18 04/28/17 18:46 65 113/63 (80) 04/28/17 18:45 18 04/28/17 18:31 73 116/49 (71) 04/28/17 18:20 16 04/28/17 18:16 84 96/80 (85) 04/28/17 18:11 102 110/88 (95) Objective Remarks GENERAL: Well-nourished, well-developed patient. CARDIOVASCULAR: Regular rate and rhythm without murmurs, gallops, or rubs. RESPIRATORY: Breath sounds equal bilaterally. No accessory muscle use. ABDOMEN/GI: Abdomen soft, non-tender. Fundus: Firm, non-tender at umbilicus. GENITOURINARY: Light to moderate bleeding. EXTREMITIES: No cyanosis or edema, non-tender, without signs of DVT. Medications and IVs Current Medications Medications (Trade) Dose Ordered Sig/Jarek Route Start Time Stop Time Status Last Admin (NS Flush) 2 ml BID IV FLUSH 04/28/17 21:00 (NS Flush) 2 ml UNSCH PRN IV FLUSH 04/28/17 18:15 (Tylenol) 650 mg Q4H PRN PO 04/28/17 18:15 (Motrin) 600 mg Q6H PRN PO 04/28/17 18:15 04/29/17 03:55 (Percocet 5-325 Mg) 1 tab Q4H PRN PO 04/28/17 18:15 04/29/17 03:55 (Percocet 5-325 Mg) 2 tab Q4H PRN PO 04/28/17 18:15 04/28/17 18:39 (Americaine 20% Top Spr) 1 spray Q4H PRN TOPICAL 04/28/17 18:15 (Tucks Pads) 1 applic QID PRN TOPICAL 04/28/17 18:15 (Rosamaria-Colace) 2 tab Q12H PRN PO 04/28/17 18:15 (Ambien) 5 mg HS PRN PO 04/28/17 18:15 (Mag-Al Plus Susp Liq) 15 ml Q8H PRN PO 04/28/17 18:15 (Zofran Odt) 4 mg Q6H PRN PO 04/28/17 18:15 (Isidoro Sage MD R1) Assessment/Plan Assessment and Plan 27 y/o female who is PPD# 1 s/p . -Continue routine care. -Motrin PRN pain. -Encouraged OOB. Advised pelvic rest for 6 wks. -Re: ctrl, she would like an IUD. -D/c in 1-2 more days. d/w Dr. Angella Leary (Isidoro Sage MD R1) Isidoro Sage MD R1 Apr 29, 2017 08:32 Gaurang York MD Apr 29, 2017 09:00
[2017-04-29] MEDS: DOCUSATE SODIUM 50 MG/SENNA 8.6 MG TAB PO PRN ×2 (08:39→20:43)
[2017-04-29 19:55] VITALS: BP 113/64; PULSE 85; RESP 18; TEMP 98.1
[2017-04-30] MEDS: IBUPROFEN 600 MG TAB PO PRN ×3 (02:03→17:28)
[2017-04-30] MEDS: oxyCODONE/ACETAMINOPHEN 5 MG/325 MG TAB PO PRN ×4 (02:03→17:29)
--- NOTE | 2017-04-30 06:15 | HHI.OB ---
Subjective Remarks PPD day # 2. No acute issues overnight, vitals are stable, patient remains afebrile. Decreasing lochia and pain. Patient is ambulating without difficulty and voiding independently. She is feeding the baby via formula. She denies any nausea or vomiting and has a good appetite. Positive flatus/bowel movement. She denies any calf pain, chest pain, or shortness of breath. She is bonding well with infant. Objective Vitals/I&O Vital Signs Date Time Temp Pulse Resp B/P (MAP) Pulse Ox O2 Delivery O2 Flow Rate FiO2 04/29/17 19:55 98.1 18 04/29/17 19:55 85 113/64 (80) 04/29/17 07:45 97.9 71 18 102/63 (76) Objective Remarks GENERAL: Well-nourished, well-developed patient. CARDIOVASCULAR: Regular rate and rhythm without murmurs, gallops, or rubs. RESPIRATORY: Breath sounds equal bilaterally. No accessory muscle use. ABDOMEN/GI: Abdomen soft, non-tender. Fundus: Firm, non-tender at umbilicus. GENITOURINARY: Light to moderate bleeding. EXTREMITIES: No cyanosis or edema, non-tender, without signs of DVT. Medications and IVs Current Medications Medications (Trade) Dose Ordered Sig/Jarek Route Start Time Stop Time Status Last Admin (NS Flush) 2 ml BID IV FLUSH 04/28/17 21:00 (NS Flush) 2 ml UNSCH PRN IV FLUSH 04/28/17 18:15 (Tylenol) 650 mg Q4H PRN PO 04/28/17 18:15 (Motrin) 600 mg Q6H PRN PO 04/28/17 18:15 04/30/17 02:03 (Percocet 5-325 Mg) 1 tab Q4H PRN PO 04/28/17 18:15 04/30/17 02:03 (Percocet 5-325 Mg) 2 tab Q4H PRN PO 04/28/17 18:15 04/28/17 18:39 (Americaine 20% Top Spr) 1 spray Q4H PRN TOPICAL 04/28/17 18:15 (Tucks Pads) 1 applic QID PRN TOPICAL 04/28/17 18:15 (Rosamaria-Colace) 2 tab Q12H PRN PO 04/28/17 18:15 04/29/17 20:43 (Ambien) 5 mg HS PRN PO 04/28/17 18:15 (Mag-Al Plus Susp Liq) 15 ml Q8H PRN PO 04/28/17 18:15 (Zofran Odt) 4 mg Q6H PRN PO 04/28/17 18:15 Assessment/Plan Assessment and Plan 27 y/o female who is PPD # 2 s/p . -Continue routine care. -Percocet and Motrin PRN pain. -Encouraged OOB. Advised pelvic rest for 6 wks. -Re: ctrl, she would like and IUD as outpatient, Depo-Provera prior to discharge. - Discharge home today. dw Dr. Dunaway and Dr. Sage R1 Kaylie Perales MD, R3 Apr 30, 2017 06:15
[2017-04-30] MEDS ORDERED: IBUP-232 PO (06:16)
[2017-04-30] MEDS ORDERED: PERI8.6T PO (06:16)
--- NOTE | 2017-04-30 06:17 | HHI.DCPOC ---
Discharge Care Plan Diagnosis: (1) (spontaneous vaginal delivery) Report Symptoms to Your Doctor -Temperature above 100.5 degrees -Redness, of incision or excessive or foul smelling drainage -Unusual pain or calf pain -Increased vaginal bleeding -Painful or difficulty urinating -Feelings of extreme sadness or anxiety after 2 weeks Goals to Promote Your Health * To prevent worsening of your condition and complications * To maintain your health at the optimal level Directions to Meet Your Goals Take your medications as prescribed Follow your dietary instruction Follow activity as directed Ensure plenty of rest for recovery Drink fluids for hydration Keep your appointments as scheduled Take your immunizations and boosters as scheduled If your symptoms worsen call your PCP, if no PCP go to Urgent Care Center or Emergency Room Smoking is Dangerous to Your Health. Avoid second hand smoke Call the 24-hour crisis hotline for domestic abuse at Kaylie Perales MD, R3 Apr 30, 2017 06:16
[2017-04-30] MEDS ORDERED: medroxyPROGESTERone ACETATE SUSP 150 MG/ML SYRINGE IM ONE (06:30)
[2017-04-30 08:50] VITALS: BP 100/68; PULSE 70; RESP 16; TEMP 98.3
[2017-05-02 09:26] LABS: BATH SALTS (MDPV) UR NEG (NEG); ECSTASY (MDMA) UR NEG (NEG); GABAPENTIN UR NEG (NEG); HEROIN (6-ACETYLMORPHINE) UR NEG (NEG); HYDROMORPHONE U NEG (NEG); K2 SPICE UR NEG (NEG); OBMETHADONE UR NEG (NEG); PHENCYCLIDINE URINE NEG (NEG)
== END 2017-04-30 19:34 | disposition home or self-care (01) | DRG 775 ==
LOC: HOBED 17:39 → H2EB 17:52 → H1EA 19:30
PROVIDERS: ADMIT Obstetrics & Gynecology; ATTEND Obstetrics & Gynecology
PROC: 10E0XZZ Delivery of Products of Conception, External Approach (ICD-10-PCS; principal; 2017-04-28)
DX: O62.3 Precipitate labor (principal); F17.210 Nicotine dependence, cigarettes, uncomplicated; O99.334 Smoking (tobacco) complicating childbirth; Z37.0 Single live birth; J45.909 Unspecified asthma, uncomplicated; O99.02 Anemia complicating childbirth; Z3A.35 35 weeks gestation of pregnancy; O99.52 Diseases of the respiratory system complicating childbirth; O34.219 Maternal care for unspecified type scar from previous cesarean delivery
CPT/HCPCS: 59025; 80307; 81001; 85025; 86900; 86901; G0481; J1050; J2590

== ENCOUNTER 2017-09-23 20:44 | Observation (INO) | payer MEDICAID, OTHER ==
[~2017-09-23] VITALS: Ht 167.6 cm; Wt 60.0 kg
[~2017-09-23 20:44] MED LIST changes: +IBUP-232 PO; +PERI8.6T PO
[2017-09-23 20:45] VITALS: BP 120/61; PULSE 78; RESP 14; TEMP 97.9; O2SAT 98
[2017-09-23] MEDS ORDERED: IOHEXOL 350 MG/ML 10 ML VIAL (for RAD DIAG) IVCONTRAST ONE (20:45)
[2017-09-23 22:10] LABS: BACTERIA, URINE OCC /hpf; BILIRUBIN, URINE NEG (NEG); BLOOD, URINE NEG (NEG); GLUCOSE,URINE NEG (NEG); KETONE, URINE TRACE mg/dL (NEG); MUCUS URINE FEW /lpf (OCC); NITRITE,URINE NEG (NEG); PH, URINE 5.5 (5.0-8.5); SQUAMOUS EPITHELIAL CELL URINE 10 /hpf (0-5); URINE COLOR YELLOW (YELLW/STRAW); URINE LEUKOCYTE ESTERASE MOD (NEG)
[2017-09-23 22:11] LABS: AUTOMATED NEUTROPHIL # 6.5 TH/MM3 (1.8-7.7); BASOPHIL % 0.4 % (0.0-2.0); EOSINOPHIL % 0.3 % (0.0-4.0); HEMATOCRIT 34.5 % (35.0-46.0); HEMOGLOBIN 11.4 GM/DL (11.6-15.3); LYMPH % 16.8 % (9.0-44.0); LYMPHOCYTE # 1.4 TH/MM3 (1.0-4.8); MEAN CELL VOLUME 80.7 FL (80.0-100.0); MEAN CORPUSCULAR HEMOGLOBIN 26.7 PG (27.0-34.0); MEAN CORPUSCULAR HGB CONC 33.1 % (32.0-36.0); MEAN PLATELET VOLUME 7.7 FL (7.0-11.0); MONO % 5.5 % (0.0-8.0); MONOCYTE # 0.5 TH/MM3 (0-0.9); PLATELET COUNT 280 TH/MM3 (150-450); RED BLOOD COUNT 4.27 MIL/MM3 (4.00-5.30); RED CELL DISTRIBUTION WIDTH 18.2 % (11.6-17.2); WHITE BLOOD COUNT 8.4 TH/MM3 (4.0-11.0)
[2017-09-23 22:28] LABS: AST (GOT) 28 U/L (15-37); BICARBONATE 26.8 MEQ/L (21.0-32.0); BLOOD UREA NITROGEN 12 MG/DL (7-18); CHLORIDE 106 MEQ/L (98-107); CREATININE 0.74 MG/DL (0.50-1.00); GLOMERULAR FILTRATION RATE 115 ML/MIN (>89); GLUCOSE,RANDOM 109 MG/DL (74-106); MAGNESIUM 2.2 MG/DL (1.5-2.5); SODIUM (NA) 139 MEQ/L (136-145)
[2017-09-23 22:29] LABS: ALT (GPT) 35 U/L (10-53)
[2017-09-23 22:33] LABS: ALKALINE PHOSPHATASE 75 U/L (45-117); TOTAL BILIRUBIN ADULT 0.5 MG/DL (0.2-1.0); TOTAL PROTEIN 7.6 GM/DL (6.4-8.2); TROPONIN I 0.16 NG/ML (0.02-0.05)
[2017-09-24] VITALS (10 sets, daily range): BP systolic 87–117; BP diastolic 50–71; PULSE 59–90; RESP 16–20; TEMP 98–98.3; O2SAT 99–100
[2017-09-24] MEDS ORDERED: LURA20TA PO (00:27)
[2017-09-24] MEDS ORDERED: TRAZ50TA12 PO (00:27)
[2017-09-24] MEDS ORDERED: ONDANSETRON HCL 4 MG/2 ML VIAL IV ONE (01:15)
[2017-09-24] MEDS ORDERED: NITROGLYCERIN 2% OINT 1 GM PACKET TOPICAL ONE (01:15)
[2017-09-24] MEDS ORDERED: ASPIRIN 81 MG CHEW TAB CHEW ONE (01:15)
[2017-09-24] MEDS ORDERED: SODIUM CHLOR 0.9% 1000 ML INJ 1,000 ML IV ONE ×2 (01:15→05:45)
--- NOTE | 2017-09-24 01:41 | PD ---
HPI Chief Complaint: Medical Clearance Time Seen by Provider: 00:52 Travel History International Travel<30 days: No Contact w/Intl Traveler<30days: No Traveled to known affect area: No History of Present Illness HPI The patient is a 28 year old female who presents to the [facility] emergency department with a history of feeling lightheaded and nearly passing out at work prior to arrival. The patient reports that she reached forward to catch her cell phone falling and struck her head on the counter. The patient denies having a loss of consciousness. The patient has an abrasion noted to the forehead. She reports that she had nausea and vomiting times one earlier today. She reports that for the last 2 days she's had diarrhea presently 5 times per day. She reports that the stool is light brown in color. She denies having any blood in her stool or black or tarry stools. She reports that over the last 2 days she's also had a dry cough and congestion. She denies having any rhinorrhea, head congestion, or sore throat. She denies having any known fevers or chills. She reports that she ended her menstrual cycle yesterday. She reports that it was heavier than usual. She reports that it lasted for 5-6 days. On review of systems otherwise, she denies having any neck pain, chest pain, shortness of breath, urinary symptoms, or neurologic symptoms. The patient reports that she has had abdominal pain over the last couple of days that is down low in the abdomen. She reports that it is a cramping sensation that comes and goes. She reports that it is different from her menstrual pain. [facility] Past Medical History Narrative Medical The patient's past medical history is significant for bipolar disorder, asthma. Hx Anticoagulant Therapy: No ADHD: Yes Asthma: Yes Bipolar Disorder: Yes Depression: Yes Cancer: No Cardiovascular Problems: No Chemotherapy: No Cerebrovascular Accident: No Diabetes: No Patient Takes Glucophage: No Diminished Hearing: No Headaches: No Psychiatric: Yes Reproductive: Yes ( vaginal births) Respiratory: No Immunizations Current: Yes Seizures: No Tetanus Vaccination: < 5 Years Influenza Vaccination: No ?: Not LMP: 09/22/17 : 4 Para: 3 Miscarriage: 0 : 1 Past Surgical History Narrative Surgical The patient's past surgical history is significant for a . Surgical History: No Previous Surgery Section: Yes Hysterectomy: No Social History Alcohol Use: Yes (OCCASIONAL) Tobacco Use: Yes (5 A DAY) Substance Use: Yes ([place]) Allergies-Medications (Allergen,Severity, Reaction): Coded Allergies: No Known Allergies (Verified , 04/28/17) Per pt. Reported Meds & Prescriptions Reported Meds & Active Scripts Active Rosamaria-Colace (Sennosides-Docusate Sodium) 8.6-50 Mg Tab 2 Tab PO BID PRN Proair Hfa 8.5 GM Inh (Albuterol Sulfate) 90 Mcg/Act Aer 2 Puff INH Q4-6H PRN 108 mcg/actuation Ferralet (Multi-Vit/Iron-Folic Ktdp-A20-Qyk C) 90-1-0.012-120 mg Tab 1 Caplet PO BID Reported Trazodone (Trazodone HCl) 50 Mg Tab 50 Mg PO HS Latuda (Lurasidone) 20 Mg Tab 20 Mg PO DAILY Review of Systems General / Constitutional: No: Fever Eyes: No: Visual changes HENT: Positive: Headaches, Lightheadedness, No: Neck Pain Cardiovascular: No: Chest Pain or Discomfort Respiratory: No: Shortness of Breath Gastrointestinal: Positive: Nausea, Vomiting, Diarrhea, Abdominal Pain, Changes in Bowel Habits Genitourinary: No: Dysuria Musculoskeletal: No: Pain Skin: No Rash Neurologic: Positive: Weakness, Dizziness, Headache, No: Focal Abnormalities, Change in Mentation, Slurred Speech, Sensory Disturbance Psychiatric: No: Depression Endocrine: No: Polydipsia Hematologic/Lymphatic: No: Easy Bruising Physical Exam Narrative General: The patient is a well-developed well-nourished female in no acute distress. Head and Neck exam: Head is normocephalic, with evidence of trauma to the center aspect of her forehead, an abrasion is noted. No increase facial bone motility on palpation or other facial bone tenderness on palpation. Eyes: EOMI, pupils are equal round and reactive to light. Nose: Midline septum with pink mucous membranes Mouth: Dentition unremarkable. Moist mucus membranes. Posterior oropharynx is not erythematous. No tonsillar hypertrophy. Uvula midline. Airway patent. Neck: No palpable lymphadenopathy. No nuchal rigidity. No thyromegaly. Cardiovascular: Regular rate and rhythm without murmurs, gallops, or rubs. No pulse deficit to the extremities. Lungs: Clear to auscultation bilaterally. No wheezes, rhonchi, or rales. Abdomen: Soft, with tenderness on palpation of bilateral lower quadrants of the abdomen. No other tenderness on palpation of the other quadrants. No guarding, rebound , or rigidity. Negative Stinson's sign. Normal bowel sounds are audible. Extremities: No clubbing, cyanosis, or edema. 2+ pulses in all 4 extremities. No calf tenderness on palpation. Negative Homans sign. No palpable cords. Back: No spinous process tenderness to palpation. Bilateral CVA tenderness on palpation. Neurologic Exam: Cranial nerves 2-12 were intact on exam. Strength is 5/5 in all 4 extremities. No sensory deficits noted. Skin Exam: No rash noted. Intact skin that is warm and dry. Data Data Last Documented VS Vital Signs Date Time Temp Pulse Resp B/P (MAP) Pulse Ox O2 Delivery O2 Flow Rate FiO2 09/24/17 02:11 90 20 106/62 (77) 99 Room Air 09/23/17 20:45 97.9 Orders Orders Electrocardiogram (09/23/17 21:06) Complete Blood Count With Diff (09/23/17 21:06) Comprehensive Metabolic Panel (09/23/17 21:06) Magnesium (Mg) (09/23/17 21:06) Ckmb (Isoenzyme) Profile (09/23/17 21:06) Troponin I (09/23/17 21:06) Urinalysis - C+S If Indicated (09/23/17 21:06) CKMB (09/23/17 21:30) CKMB% (09/23/17 21:30) Sodium Chlor 0.9% 1000 Ml Inj (Ns 1000 M (09/24/17 01:15) Ondansetron Inj (Zofran Inj) (09/24/17 01:15) Nitroglycerin 2% Oint (Nitroglycerin 2% (09/24/17 01:15) Aspirin Chew (Aspirin Chew) (09/24/17 01:15) Ckmb (Isoenzyme) Profile (09/24/17 01:16) Troponin I (09/24/17 01:16) B-Type Natriuretic Peptide (09/24/17 01:16) D-Dimer (09/24/17 01:16) Chest, Single Ap (09/24/17 01:16) Iv Access Insert/Monitor (09/24/17 01:16) Ecg Monitoring (09/24/17 01:16) Oximetry (09/24/17 01:16) Ct Abd/Pel W Iv Contrast(Rout) (09/24/17 01:18) Ed Urine Pregnancytest Poc (09/24/17 01:18) CKMB (09/24/17 01:20) CKMB% (09/24/17 01:20) Iohexol 350 Inj (Omnipaque 350 Inj) (09/23/17 20:45) Admit Order (Ed Use Only) (09/24/17 03:30) Labs Laboratory Tests Test 09/23/17 21:20 09/23/17 21:30 09/24/17 01:20 Urine Color YELLOW Urine Turbidity HAZY Urine pH 5.5 Urine Specific [place] 1.029 Urine Protein 30 mg/dL Urine Glucose (UA) NEG mg/dL Urine Ketones TRACE mg/dL Urine Occult Blood NEG Urine Nitrite NEG Urine Bilirubin NEG Urine Urobilinogen 2.0 MG/DL Urine Leukocyte Esterase MOD Urine RBC LESS THAN 1 /hpf Urine WBC 4 /hpf Urine Squamous Epithelial Cells 10 /hpf Urine Bacteria OCC /hpf Urine Mucus FEW /lpf Microscopic Urinalysis Comment CULT NOT INDICATED White Blood Count 8.4 TH/MM3 Red Blood Count 4.27 MIL/MM3 Hemoglobin 11.4 GM/DL Hematocrit 34.5 % Mean Corpuscular Volume 80.7 FL Mean Corpuscular Hemoglobin 26.7 PG Mean Corpuscular Hemoglobin Concent 33.1 % Red Cell Distribution Width 18.2 % Platelet Count 280 TH/MM3 Mean Platelet Volume 7.7 FL Neutrophils (%) (Auto) 77.0 % Lymphocytes (%) (Auto) 16.8 % Monocytes (%) (Auto) 5.5 % Eosinophils (%) (Auto) 0.3 % Basophils (%) (Auto) 0.4 % Neutrophils # (Auto) 6.5 TH/MM3 Lymphocytes # (Auto) 1.4 TH/MM3 Monocytes # (Auto) 0.5 TH/MM3 Eosinophils # (Auto) 0.0 TH/MM3 Basophils # (Auto) 0.0 TH/MM3 CBC Comment DIFF FINAL Differential Comment Blood Urea Nitrogen 12 MG/DL Creatinine 0.74 MG/DL Random Glucose 109 MG/DL Total Protein 7.6 GM/DL Albumin 4.0 GM/DL Calcium Level 9.0 MG/DL Magnesium Level 2.2 MG/DL Alkaline Phosphatase 75 U/L Aspartate Amino Transf (AST/SGOT) 28 U/L Alanine Aminotransferase (ALT/SGPT) 35 U/L Total Bilirubin 0.5 MG/DL Sodium Level 139 MEQ/L Potassium Level 3.4 MEQ/L Chloride Level 106 MEQ/L Carbon Dioxide Level 26.8 MEQ/L Anion Gap 6 MEQ/L Estimat Glomerular Filtration Rate 115 ML/MIN Total Creatine Kinase 583 U/L 589 U/L Creatine Kinase MB 4.9 NG/ML 4.7 NG/ML Creatine Kinase MB % 0.8 % 0.8 % Troponin I 0.16 NG/ML 0.08 NG/ML D-Dimer Quantitative (PE/DVT) 0.31 MG/L FEU B-Type Natriuretic Peptide 59 PG/ML Lipase 265 U/L MDM Medical Decision Making Medical Screen Exam Complete: Yes Emergency Medical Condition: Yes Medical Record Reviewed: Yes Interpretation(s) Last Impressions Abdomen/Pelvis CT 09/24/17117 Signed Impressions: Service Date/Time: Sunday, September 24, 2017 02:49 - CONCLUSION: Negative CT abdomen/pelvis with contrast. Lakhwinder De Jesus MD Chest X-Ray 09/24/17115 Signed Impressions: Service Date/Time: Sunday, September 24, 2017 01:30 - CONCLUSION: The lungs are clear. Lakhwinder De Jesus MD Differential Diagnosis Vasovagal syncope, versus orthostasis, versus dehydration, versus electrolyte derangements, versus cardiac arrhythmia, versus pulmonary embolism Narrative Course During the course of the patients emergency department visit, the patients history, examination, and differential diagnosis were reviewed with the patient. The patient was placed on a threat monitoring analyst with oximetry and frequent blood pressure monitoring. The patient had IV access obtained and blood work sent for analysis. The patient had an EKG done on arrival. The patient's EKG shows a sinus rhythm heart rate of 68, no acute ST segment elevation or depression, T waves are inverted in V1. Workup was started out in triage as there was a prolonged wait to get back to the emergency department bed. The patient was initially provided aspirin 324 mg by mouth 1 after her troponin came back elevated, nitroglycerin 1 inch to the chest wall, Zofran 4 mg IV, normal saline 1 L IV. The patients laboratory studies were reviewed and remarkable for a white count of 8.4, hemoglobin 11.4, platelets 280 with 77 neutrophils, CMP is remarkable for potassium of 3.4, glucose 109, CPK 583 with a normal MB percent is 0.8, troponin I 0.16, d-dimer 0.31 decreased and the likelihood of pulmonary embolism in this patient with no other significant risk factors. Urinalysis shows trace ketones moderate leukocyte esterase, occasional bacteria Radiology studies were reviewed and remarkable for a chest x-ray that shows no acute cardiopulmonary disease, CT scan of the abdomen and pelvis shows no acute abnormality. The patient's case was initially discussed with Dr. St for admission, however she reviewed the electronic medical record and the patient was last seen by the [facility] residents. I then spoke to the [facility] residents who did agree to admit the patient for further evaluation and treatment at this time. The patients results were discussed with the patient, including the plan of care. I explained that further testing and/ or monitoring is indicated based on the patients history, examination, and/ or laboratory findings. Therefore, I recommended admission for additional evaluation. The patient expressed understanding and was agreeable with this plan. The patient was admitted to the hospital in stable condition and sent to a bed under the care of the family practice residents. Physician Communication Physician Communication The patient's case including history, pertinent physical examination findings, and laboratory studies were discussed with Dr. St, and then the [facility] practice resident it was agreed that the patient would be admitted to the [facility] teaching service. Diagnosis Primary Impression: Near syncope Additional Impression: Elevated troponin Admitting Information Admitting Physician Requests: Maya Dover MD Sep 24, 2017 01:41
[2017-09-24 01:53] LABS: TROPONIN I 0.08 NG/ML (0.02-0.05)
--- NOTE | 2017-09-24 01:55 | RADRPT ---
EXAM DATE/TIME: 09/24/2017 01:30 [facility] COMPARISON: No previous studies available for comparison. INDICATIONS : Short of breath. MEDICAL HISTORY : None. SURGICAL HISTORY : None. ENCOUNTER: Initial ACUITY: 1 day PAIN SCORE: 0/10 LOCATION: Bilateral chest FINDINGS: A single view of the chest demonstrates the lungs to be symmetrically aerated without evidence of mas s, infiltrate or effusion. The cardiomediastinal contours are unremarkable. Osseous structures are intact. Multiple cardiac leads project over the chest. CONCLUSION: The lungs are clear. Lakhwinder De Jesus MD on September 24, 2017 at 1:53 Board Certified Radiologist. This report was verified electronically.
--- NOTE | 2017-09-24 02:58 | RADRPT ---
EXAM DATE/TIME: 09/24/2017 02:49 [facility] COMPARISON: No previous studies available for comparison. INDICATIONS : Abdomen pain. IV CONTRAST: 70 cc Omnipaque 350 (iohexol) IV ORAL CONTRAST: No oral contrast ingested. RADIATION DOSE: 5.55 CTDIvol (mGy) MEDICAL HISTORY : Asthma SURGICAL HISTORY : section. ENCOUNTER: Initial ACUITY: 1 day PAIN SCALE: 7/10 LOCATION: Bilateral abdomen TECHNIQUE: Volumetric scanning of the abdomen and pelvis was performed. Using automated exposure control and ad justment of the mA and/or kV according to patient size, radiation dose was kept as low as reasonably achievable to obtain optimal diagnostic quality images. DICOM format image data is available electro nically for review and comparison. FINDINGS: LOWER LUNGS: The visualized lower lungs are clear. LIVER: Homogeneous density without lesion. There is no dilation of the biliary tree. No calcified gallston es. SPLEEN: Normal size without lesion. PANCREAS: Within normal limits. KIDNEYS: Normal in size and shape. There is no mass, stone or hydronephrosis. ADRENAL GLANDS: Within normal limits. VASCULAR: There is no aortic aneurysm. BOWEL/MESENTERY: The stomach, small bowel, and colon demonstrate no acute abnormality. There is no free intraperitone al air or fluid. ABDOMINAL WALL: Within normal limits. RETROPERITONEUM: There is no lymphadenopathy. BLADDER: No wall thickening or mass. REPRODUCTIVE: Anteverted uterus. INGUINAL: There is no lymphadenopathy or hernia. MUSCULOSKELETAL: Within normal limits for patient age. CONCLUSION: Negative CT abdomen/pelvis with contrast. Lakhwinder De Jesus MD on September 24, 2017 at 2:55 Board Certified Radiologist. This report was verified electronically.
--- NOTE | 2017-09-24 04:58 | HHI.HP ---
[facility] Service Family Medicine Primary Care Physician No Primary Care Physician Admission Diagnosis syncope, elevated troponin Diagnoses: International Travel<30 Days: No Contact w/Intl Traveler<30days: No Known Affected Area: No History of Present Illness The patient is a pleasant 27-year-old woman who presented to the ED following a near syncopal episode while at work Saturday evening. Patient reports at about 19: 30 on Saturday she started to feel lightheaded and dizzy. 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 She states she was feeling in her normal state of health prior to feeling warm. States she then began feeling very nauseous and went to the restroom and had one episode of vomiting. States her emesis was a thick white substance, no food substances nor blood or bile. She reports she also had an episode of watery nonbloody diarrhea during this time. She states she came back home to work when she began to feel lightheaded and dizzy and had to lean over on the wall to keep her balance however when going to support herself she lost her balance and hit the top part of her forehead. She endorses not having much to eat or drink throughout all of yesterday. Patient is found to have an elevated troponin in the ED to 0.16. She does endorse chest pain over about the past 2-3 days. She reports her chest pain as the whole left side of her chest as well as her shoulder, endorsing a sharp, nonradiating, brief pain lasting for a few seconds at a time and occurring randomly throughout the day. She currently denies any chest pain and denies having chest pain while at work during the above symptoms. Denies SOB, anxiety, palpitations. Admits to using marijuana once pranav. every 2-3 days. Denies use of cocaine or any other illicit substance. She also reports having had intermittent abdominal cramps over the past 2-3 days. Also reports low back pain however she states this is more of a chronic issue for her. Endorses heavy menstrual bleeding past 5-6 days, period ending yesterday. Denies intermenstrual bleeding. Her complaints otherwise are of a frontal headache since her presyncopal episode and of being hungry. (Oscar Chua MD) Review of Systems Constitutional: DENIES: Fever, Chills Endocrine: DENIES: Abnorml menstrual pattern Eyes: DENIES: Blurred vision, Diplopia, Eye pain, Double Vision Respiratory: COMPLAINS OF: Cough (Endorses dry cough x2-3 days), DENIES: Wheezing, Sputum production, Shortness of breath Cardiovascular: DENIES: Chest pain, Palpitations Gastrointestinal: COMPLAINS OF: Abdominal pain, Diarrhea, Nausea, Vomiting, DENIES: Black stools, Bloody stools, Constipation Genitourinary: COMPLAINS OF: Abnormal vaginal bleeding (Heavy menstrual bleed per HPI), DENIES: Urgency, Hematuria, Dysuria Musculoskeletal: COMPLAINS OF: Back pain, DENIES: Joint pain, Muscle aches Hematologic/lymphatic: COMPLAINS OF: Bruising Neurologic: COMPLAINS OF: Headache, DENIES: Localized weakness, Paresthesias Psychiatric: DENIES: Anxiety, Depression, Hallucinations (Oscar Chua MD) Past Family Social History Past Medical History Bipolar disorder, currently taking Latuda Asthma Depression Past Surgical History (Oscar Chua MD) Allergies: Coded Allergies: No Known Allergies (Verified , 04/28/17) Per pt. Family History Mother: minor stroke, bipolar disorder Father: unknown Social History Tobacco: reports smoking 5 cigarettes a day, since age 18 Etoh: states social occasions only Illicit drug use: admits to smoking marijuana once about every 2-3 days, states not on a daily basis Usually lives by herself, currently living with her children and mother as she does not have power at her place (Oscar Chua MD) Physical Exam Vital Signs Vital Signs Date Time Temp Pulse Resp B/P (MAP) Pulse Ox O2 Delivery O2 Flow Rate FiO2 09/24/17 02:11 90 20 106/62 (77) 99 Room Air 09/24/17 01:26 72 20 112/69 (83) 100 09/24/17 00:28 76 18 108/59 (75) 100 Room Air 09/23/17 20:45 97.9 78 14 120/61 (80) 98 Room Air Physical Exam GENERAL: Appears tired, lying comfortably in bed, pleasant NEURO: Alert and Oriented x3. Normal speech. medical certification specialist tested and intact. Motor grossly normal. Strength 5/5 throughout. Gait not tested. SKIN: Warm and dry. ~1x2cm superficial abrasion on her superior left part of forehead with a smaller superficial abrasion medial to it with mild edema, slightly tender to palpation. No skin tenting. HEAD: Normocephalic. Atraumatic. EYES: PERRL. EOMI. No scleral icterus. No injection or drainage. ENT: No nasal drainage. Dry mucous membranes. NECK: Supple, trachea midline. No JVD or lymphadenopathy. CARDIOVASCULAR: Regular rate and rhythm without murmurs, rubs, or gallops. Radial, DP, and PT pulses 2+. Capillary refill about 2 seconds. RESPIRATORY: Breath sounds clear to auscultation and equal bilaterally, without wheezes, rales, or rhonchi. No accessory muscle use. GASTROINTESTINAL: Abdomen soft, moderately tender in LUQ and LLQ, nondistended, normal BS. No organomegaly or masses. No rebound tenderness. No guarding. MUSCULOSKELETAL: No lower extremity edema. Normal range of motion. BACK: Without obvious deformity. +CVA tenderness bilaterally. Laboratory Laboratory Tests Test 09/23/17 21:20 09/23/17 21:30 09/24/17 01:20 Urine Color YELLOW Urine Turbidity HAZY Urine pH 5.5 Urine Specific [place] 1.029 Urine Protein 30 Urine Glucose (UA) NEG Urine Ketones TRACE Urine Occult Blood NEG Urine Nitrite NEG Urine Bilirubin NEG Urine Urobilinogen 2.0 Urine Leukocyte Esterase MOD Urine RBC LESS THAN 1 Urine WBC 4 Urine Squamous Epithelial Cells 10 Urine Bacteria OCC Urine Mucus FEW Microscopic Urinalysis Comment CULT NOT INDICATED White Blood Count 8.4 Red Blood Count 4.27 Hemoglobin 11.4 Hematocrit 34.5 Mean Corpuscular Volume 80.7 Mean Corpuscular Hemoglobin 26.7 Mean Corpuscular Hemoglobin Concent 33.1 Red Cell Distribution Width 18.2 Platelet Count 280 Mean Platelet Volume 7.7 Neutrophils (%) (Auto) 77.0 Lymphocytes (%) (Auto) 16.8 Monocytes (%) (Auto) 5.5 Eosinophils (%) (Auto) 0.3 Basophils (%) (Auto) 0.4 Neutrophils # (Auto) 6.5 Lymphocytes # (Auto) 1.4 Monocytes # (Auto) 0.5 Eosinophils # (Auto) 0.0 Basophils # (Auto) 0.0 CBC Comment DIFF FINAL Differential Comment Blood Urea Nitrogen 12 Creatinine 0.74 Random Glucose 109 Total Protein 7.6 Albumin 4.0 Calcium Level 9.0 Magnesium Level 2.2 Alkaline Phosphatase 75 Aspartate Amino Transf (AST/SGOT) 28 Alanine Aminotransferase (ALT/SGPT) 35 Total Bilirubin 0.5 Sodium Level 139 Potassium Level 3.4 Chloride Level 106 Carbon Dioxide Level 26.8 Anion Gap 6 Estimat Glomerular Filtration Rate 115 Total Creatine Kinase 583 589 Creatine Kinase MB 4.9 4.7 Creatine Kinase MB % 0.8 0.8 Troponin I 0.16 0.08 D-Dimer Quantitative (PE/DVT) 0.31 B-Type Natriuretic Peptide 59 (Oscar Chua MD) Result Diagram: 09/23/17212909/23/172129 Caprini VTE Risk Assessment Caprini VTE Risk Assessment: No/Low Risk (score <= 1) Caprini Risk Assessment Model Point Value = 1 Point Value = 2 Point Value = 3 Point Value = 5 Age 41-60 Minor surgery BMI > 25 kg/m2 Swollen legs Varicose veins or History of unexplained or recurrent spontaneous Oral contraceptives or hormone replacement Sepsis (< 1 month) Serious lung disease, including pneumonia (< 1 month) Abnormal pulmonary function Acute myocardial infarction Congestive heart failure (< 1 month) History of inflammatory bowel disease Medical patient at bed rest Age 61-74 Arthroscopic surgery Major open surgery (> 45 min) Laparoscopic surgery (> 45 min) Malignancy Confined to bed (> 72 hours) Immobilizing plaster cast Central venous access Age >= 75 History of VTE Family history of VTE Factor V Leiden Prothrombin [id number] Lupus anticoagulant Anticardiolipin antibodies Elevated serum homocysteine Heparin-induced thrombocytopenia Other congenital or acquired thrombophilia Stroke (< 1 month) Elective arthroplasty Hip, pelvis, or leg fracture Acute spinal cord injury (< 1 month) Prophylaxis Regimen Total Risk Factor Score Risk Level Prophylaxis Regimen 0-1 Low Early ambulation 2 Moderate Order ONE of the following: *Sequential Compression Device (SCD) *Heparin 5000 units SQ BID 3-4 Higher Order ONE of the following medications: *Heparin 5000 units SQ TID *Enoxaparin/Lovenox 40 mg SQ daily (WT < 150 kg, CrCl > 30 mL/min) *Enoxaparin/Lovenox 30 mg SQ daily (WT < 150 kg, CrCl > 10-29 mL/min) *Enoxaparin/Lovenox 30 mg SQ BID (WT < 150 kg, CrCl > 30 mL/min) AND/OR *Sequential Compression Device (SCD) 5 or more Highest Order ONE of the following medications: *Heparin 5000 units SQ TID (Preferred with Epidurals) *Enoxaparin/Lovenox 40 mg SQ daily (WT < 150 kg, CrCl > 30 mL/min) *Enoxaparin/Lovenox 30 mg SQ daily (WT < 150 kg, CrCl > 10-29 mL/min) *Enoxaparin/Lovenox 30 mg SQ BID (WT < 150 kg, CrCl > 30 mL/min) AND *Sequential Compression Device (SCD) (Oscar Chua MD) Assessment and Plan Assessment and Plan 27 year old female being admitted to observation with elevated troponin after reported chest pain over past 2-3 days and with dehydration and pre-syncopal symptoms. Code Status Full code Discussed Condition With Dr. Aparicio Will discuss with Family Practice Service (Oscar Chua MD) Attending Attestation Patient seen and examined. Case reviewed and discussed with the resident team. Agree with plan of care as discussed with me and documented in the resident note. she has no chest pain but instead has lower abdominal pain related to her diarrhea as well as current back pain mainly left sided and covering her entire back. She is very dehydrated on presentation with a urine specific gravity of 1.029. Her CPKs are up because of myalgias as is her CKMBs. Her troponins are slightly up but she is very dehydrated. (Angela Rees MD) Problem List: (1) Elevated troponin ICD Codes: R74.8 - Abnormal levels of other serum enzymes Status: Acute Plan: EKG noted to be NSR, without acute ST elevations or depressions, noted T- wave inversion in lead V1 Troponins 0.16 -> 0.08 D-dimer within normal limits Consider as potential causes NSTEMI although patient is young without risk factors and no reported cocaine or methamphetamine use, hypoperfusion due to dehydration, hypotension Repeat troponin and EKG in 6 hours Check urine toxicology Consider cardiology consultation pending repeat troponin / EKG Patient given full dose aspirin in ED No active chest pain (2) Pre-syncope ICD Codes: R55 - Syncope and collapse Status: Acute Plan: Likely due to dehydration, possibly contributed to by a gastroenteritis EKG noted as above Glucose 109 s/p 1L NS bolus in ED Will give additional 1L bolus Continue NS at 100 cc/hr Consult PT Consider syncopal workup to include 2D echo and carotid ultrasound if patient remains symptomatic despite IVF hydration (3) Dehydration ICD Codes: E86.0 - Dehydration Status: Acute Plan: Plan as above IVF and PO hydration Repeat CK with morning labs (4) Abdominal pain ICD Codes: R10.9 - Unspecified abdominal pain Status: Acute Plan: LUQ and LLQ pain on examination, otherwise soft and without peritoneal signs CT abdomen/pelvis normal May be related to gastroenteritis Will check a lipase level (5) Hypokalemia ICD Codes: E87.6 - Hypokalemia Status: Acute Plan: Noted 3.4 Continue to monitor (6) Anemia Status: Acute Plan: Patient with reported heavy menstrual bleeding past 5-6 days Continue to monitor (7) Nutrition, metabolism, and development symptoms ICD Codes: R63.8 - Other symptoms and signs concerning food and fluid intake Status: Acute Plan: Fluids: NS at 100 cc/hr Electrolytes: continue to monitor Nutrition: Regular diet DVT ppx: b/l SCDs, add chemical anticoagulation if anticipating a longer hospital stay GI ppx: not indicated at this time Headache: Tylenol prn pain (Oscar Chua MD) Physician Certification 2 Midnight Certification Type: Admission for Inpatient Services Order for Inpatient Services The services are ordered in accordance with Medicare regulations or non- Medicare payer requirements, as applicable. In the case of services not specified as inpatient-only, they are appropriately provided as inpatient services in accordance with the 2-midnight benchmark. Estimated LOS (days): 1 days is the estimated time the patient will need to remain in the hospital, assuming treatment plan goals are met and no additional complications. Post-Hospital Plan: Home (Oscar Chua MD) Oscar Chua MD Sep 24, 2017 04:58 Angela Rees MD Sep 24, 2017 10:45
[2017-09-24] MEDS ORDERED: SODIUM CHLORIDE 0.9% FLUSH 10 ML FLUSH IV FLUSH PRN (05:45)
[2017-09-24] MEDS ORDERED: NALOXONE HCL 0.4 MG/ML AMP IV PUSH PRN (05:45)
[2017-09-24] MEDS ORDERED: ONDANSETRON HCL 4 MG/2 ML VIAL IVP PRN (05:45)
[2017-09-24] MEDS: ACETAMINOPHEN 325 MG TAB PO PRN ×2 (06:35→22:02)
[2017-09-24] MEDS ORDERED: POTASSIUM CHLORIDE 20 MEQ CONTROLLED RELEASE TAB PO ONE (07:00)
[2017-09-24] MEDS: SODIUM CHLOR 0.9% 1000 ML INJ 1,000 ML IV SCH ×2 (08:43→22:02)
[2017-09-24] MEDS: SODIUM CHLORIDE 0.9% FLUSH 10 ML FLUSH IV FLUSH SCH ×2 (09:00→21:00)
[2017-09-24] MEDS ORDERED: ENOXAPARIN SODIUM 40 MG/0.4 ML SYRINGE SQ SCH (11:00)
[2017-09-24 11:35] LABS: AUTOMATED NEUTROPHIL # 3.4 TH/MM3 (1.8-7.7); BASOPHIL % 0.4 % (0.0-2.0); EOSINOPHIL # 0.1 TH/MM3 (0-0.4); EOSINOPHIL % 2.1 % (0.0-4.0); HEMATOCRIT 29.3 % (35.0-46.0); HEMOGLOBIN 9.9 GM/DL (11.6-15.3); LYMPH % 34.8 % (9.0-44.0); LYMPHOCYTE # 2.1 TH/MM3 (1.0-4.8); MEAN CELL VOLUME 81.2 FL (80.0-100.0); MEAN CORPUSCULAR HEMOGLOBIN 27.3 PG (27.0-34.0); MEAN CORPUSCULAR HGB CONC 33.6 % (32.0-36.0); MEAN PLATELET VOLUME 7.8 FL (7.0-11.0); MONOCYTE # 0.5 TH/MM3 (0-0.9); NEUT % 54.7 % (16.0-70.0); PLATELET COUNT 244 TH/MM3 (150-450); RED BLOOD COUNT 3.61 MIL/MM3 (4.00-5.30); RED CELL DISTRIBUTION WIDTH 18.3 % (11.6-17.2); WHITE BLOOD COUNT 6.2 TH/MM3 (4.0-11.0)
[2017-09-24 12:23] LABS: BICARBONATE 24.8 MEQ/L (21.0-32.0); CALCIUM 7.9 MG/DL (8.5-10.1); CREATININE 0.59 MG/DL (0.50-1.00); TROPONIN I 0.03 NG/ML (0.02-0.05)
--- NOTE | 2017-09-24 17:21 | EKG ---
Date Performed: 09/24/2017 Time Performed: 08:06:08 PTAGE: 27 years EKG: Sinus rhythm PROLONGED QT INTERVAL ABNORMAL ECG PREVIOUS TRACING : 09/24/2017 00.34 DOCTOR: Rayna Herndon Interpretating Date/Time 09/24/2017 17:19:42
--- NOTE | 2017-09-24 17:31 | EKG ---
Date Performed: 09/24/2017 Time Performed: 00:34:07 PTAGE: 27 years EKG: Sinus rhythm NORMAL ECG PREVIOUS TRACING : 11/25/2013 19.38 DOCTOR: Rayna Herndon Interpretating Date/Time 09/24/2017 17:24:48
[2017-09-25] MEDS: SODIUM CHLOR 0.9% 1000 ML INJ 1,000 ML IV SCH ×2 (01:36→08:31)
[2017-09-25 04:00] VITALS: PULSE 60
[2017-09-25 04:54] VITALS: BP 95/51; PULSE 65; RESP 18; TEMP 97.9; O2SAT 99
[2017-09-25 07:12] VITALS: BP 104/56; PULSE 65; RESP 18; TEMP 97.8; O2SAT 99
[2017-09-25] MEDS: SODIUM CHLORIDE 0.9% FLUSH 10 ML FLUSH IV FLUSH SCH (08:32)
--- NOTE | 2017-09-25 08:35 | HHI.HP ---
[facility] Service Family Medicine Primary Care Physician No Primary Care Physician Admission Diagnosis syncope, elevated troponin Diagnoses: (1) Dehydration Diagnosis: Principal (2) Pre-syncope Diagnosis: Secondary (3) Abdominal pain Diagnosis: Principal (4) Hypokalemia Diagnosis: Principal (5) Anemia Diagnosis: Principal (6) Nutrition, metabolism, and development symptoms Diagnosis: Principal (7) Elevated troponin Diagnosis: Secondary International Travel<30 Days: No Contact w/Intl Traveler<30days: No Known Affected Area: No History of Present Illness Ms Mas is a pleasant 27-year-old woman who presented to the ED following a near syncopal episode while at work Saturday evening. Patient reported at about 19 :30 on Saturday she started to feel lightheaded and dizzy. 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 She states she was feeling in her normal state of health prior to feeling warm. States she then began feeling very nauseous and went to the restroom and had one episode of vomiting. States her emesis was a thick white substance, no food substances nor blood or bile. She reports she also had an episode of watery nonbloody diarrhea during this time. She states she came back to work when she began to feel lightheaded and dizzy and had to lean over on the wall to keep her balance however when going to support herself she lost her balance and hit the top part of her forehead. She endorses not having much to eat or drink throughout all of the day before admission. Patient was found to have an elevated troponin in the ED to 0.16. She does endorse chest pain over about the past 2-3 days. She reports her chest pain as the whole left side of her chest as well as her shoulder, endorsing a sharp, nonradiating, brief pain lasting for a few seconds at a time and occurring randomly throughout the day. She currently denies any chest pain and denies having chest pain while at work during the above symptoms. Denies SOB, anxiety, palpitations. Admits to using marijuana once pranav. every 2-3 days. Denies use of cocaine or any other illicit substance. She also reports having had intermittent abdominal cramps over the past 2-3 days related to the diarrhea. Also reports low back pain however she states this is more of a chronic issue for her. Endorses heavy menstrual bleeding past 5-6 days, period ending 2 days ago. Denies intermenstrual bleeding. Her complaints otherwise are of a frontal headache since her presyncopal episode and of being hungry. She was found to be very dehydrated on labs and exam. Her urine specific gravity was 1.029. She received a liter bolus and began to feel improved and her iv fluids were continued. She feels back to normal this am and is able to eat and drink with no vomiting or diarrhea. Her EKGs and troponins all were normal except the slight elevation of the first one when she was clearly dehydrated. She requested discharge home today and also wishes control pills but was advised that she will need a visit as an outpt to the [facility] which she agrees to do. Review of Systems Constitutional: COMPLAINS OF: Diaphoretic episodes, Fatigue, Chills Respiratory: COMPLAINS OF: Cough, DENIES: Wheezing, Hemoptysis, Sputum production, Shortness of breath Cardiovascular: DENIES: Dyspnea on Exertion, Lower Extremity Edema, Claudication Gastrointestinal: COMPLAINS OF: Abdominal pain, Diarrhea, Nausea, Vomiting, Anorexia Musculoskeletal: COMPLAINS OF: Muscle aches, Back pain, Neck pain Integumentary: DENIES: Rash Neurologic: COMPLAINS OF: Headache, DENIES: Localized weakness Other Constitutional: DENIES: Fever, Chills Endocrine: DENIES: Abnorml menstrual pattern but does have heavy bleeding Eyes: DENIES: Blurred vision, Diplopia, Eye pain, Double Vision Respiratory: COMPLAINS OF: Cough (Endorses dry cough x2-3 days), DENIES: Wheezing, Sputum production, Shortness of breath Cardiovascular: DENIES: Chest pain, Palpitations Gastrointestinal: COMPLAINS OF: Abdominal pain, Diarrhea, Nausea, Vomiting, DENIES: Black stools, Bloody stools, Constipation Genitourinary: COMPLAINS OF: Abnormal vaginal bleeding (Heavy menstrual bleed per HPI), DENIES: Urgency, Hematuria, Dysuria Musculoskeletal: COMPLAINS OF: Back pain, DENIES: Joint pain Hematologic/lymphatic: COMPLAINS OF: Bruising Neurologic: COMPLAINS OF: Headache, DENIES: Localized weakness, Paresthesias Psychiatric: DENIES: Anxiety, Depression, Hallucinations Past Family Social History Past Medical History Bipolar disorder, currently taking Latuda Asthma Depression Past Surgical History Allergies: Coded Allergies: No Known Allergies (Verified , 04/28/17) Per pt. Family History Mother: minor stroke, bipolar disorder Father: unknown Social History Tobacco: reports smoking 5 cigarettes a day, since age 18 Etoh: states social occasions only Illicit drug use: admits to smoking marijuana once about every 2-3 days, states not on a daily basis Usually lives by herself, currently living with her children and mother as she does not have power at her place Physical Exam Vital Signs Vital Signs Date Time Temp Pulse Resp B/P (MAP) Pulse Ox O2 Delivery O2 Flow Rate FiO2 09/25/17 07:12 97.8 65 18 104/56 (72) 99 09/25/17 04:54 97.9 65 18 95/51 (66) 99 09/25/17 04:00 60 09/24/17 21:31 98.0 70 18 110/66 (81) 99 09/24/17 21:02 20 09/24/17 14:39 98.3 72 18 99/56 (70) 99 09/24/17 11:35 98.0 86 16 95/50 (65) 99 100/56 (71) 117/71 (86) Physical Exam GENERAL: This is a well-nourished, well-developed patient, in no apparent distress but appears fatigued and acutely ill. SKIN: No rashes, ecchymoses or lesions. Cool and dry. HEAD: Atraumatic. Normocephalic. EYES: Pupils equal round and reactive. Extraocular motions intact. No scleral icterus. No injection or drainage. ENT: Nose without bleeding, purulent drainage or septal hematoma. Airway patent. NECK: Trachea midline. No JVD or lymphadenopathy. Supple, nontender, no meningeal signs. CARDIOVASCULAR: Regular rate and rhythm without murmurs, gallops, or rubs. RESPIRATORY: Clear to auscultation. Breath sounds equal bilaterally. No wheezes , rales, or rhonchi. GASTROINTESTINAL: Abdomen soft, non-tender, nondistended. No hepato-splenomegaly , or palpable masses. No guarding. MUSCULOSKELETAL: Extremities without clubbing, cyanosis, or edema. No joint tenderness, effusion, or edema noted. No calf tenderness. Negative Homans sign bilaterally. NEUROLOGICAL: Awake and alert. Cranial nerves II through XII intact. Motor and sensory grossly within normal limits. Five out of 5 muscle strength in all muscle groups. Normal speech. Laboratory Laboratory Tests Test 09/24/17 09:50 09/25/17 02:00 White Blood Count 6.2 Red Blood Count 3.61 Hemoglobin 9.9 Hematocrit 29.3 Mean Corpuscular Volume 81.2 Mean Corpuscular Hemoglobin 27.3 Mean Corpuscular Hemoglobin Concent 33.6 Red Cell Distribution Width 18.3 Platelet Count 244 Mean Platelet Volume 7.8 Neutrophils (%) (Auto) 54.7 Lymphocytes (%) (Auto) 34.8 Monocytes (%) (Auto) 8.0 Eosinophils (%) (Auto) 2.1 Basophils (%) (Auto) 0.4 Neutrophils # (Auto) 3.4 Lymphocytes # (Auto) 2.1 Monocytes # (Auto) 0.5 Eosinophils # (Auto) 0.1 Basophils # (Auto) 0.0 CBC Comment DIFF FINAL Differential Comment Blood Urea Nitrogen 9 Creatinine 0.59 Random Glucose 99 Calcium Level 7.9 Sodium Level 142 Potassium Level 3.4 Chloride Level 111 Carbon Dioxide Level 24.8 Anion Gap 6 Estimat Glomerular Filtration Rate 149 Total Creatine Kinase 475 Creatine Kinase MB 3.0 Creatine Kinase MB % 0.6 Troponin I 0.03 Urine Opiates Screen NEG Urine Barbiturates Screen NEG Urine Amphetamines Screen NEG Urine Benzodiazepines Screen NEG Urine Cocaine Screen NEG Urine Cannabinoids Screen NEG Result Diagram: 09/24/1750 09/24/1750 Caprini VTE Risk Assessment Caprini VTE Risk Assessment: No/Low Risk (score <= 1) Caprini Risk Assessment Model Point Value = 1 Point Value = 2 Point Value = 3 Point Value = 5 Age 41-60 Minor surgery BMI > 25 kg/m2 Swollen legs Varicose veins or History of unexplained or recurrent spontaneous Oral contraceptives or hormone replacement Sepsis (< 1 month) Serious lung disease, including pneumonia (< 1 month) Abnormal pulmonary function Acute myocardial infarction Congestive heart failure (< 1 month) History of inflammatory bowel disease Medical patient at bed rest Age 61-74 Arthroscopic surgery Major open surgery (> 45 min) Laparoscopic surgery (> 45 min) Malignancy Confined to bed (> 72 hours) Immobilizing plaster cast Central venous access Age >= 75 History of VTE Family history of VTE Factor V Leiden Prothrombin [id number] Lupus anticoagulant Anticardiolipin antibodies Elevated serum homocysteine Heparin-induced thrombocytopenia Other congenital or acquired thrombophilia Stroke (< 1 month) Elective arthroplasty Hip, pelvis, or leg fracture Acute spinal cord injury (< 1 month) Prophylaxis Regimen Total Risk Factor Score Risk Level Prophylaxis Regimen 0-1 Low Early ambulation 2 Moderate Order ONE of the following: *Sequential Compression Device (SCD) *Heparin 5000 units SQ BID 3-4 Higher Order ONE of the following medications: *Heparin 5000 units SQ TID *Enoxaparin/Lovenox 40 mg SQ daily (WT < 150 kg, CrCl > 30 mL/min) *Enoxaparin/Lovenox 30 mg SQ daily (WT < 150 kg, CrCl > 10-29 mL/min) *Enoxaparin/Lovenox 30 mg SQ BID (WT < 150 kg, CrCl > 30 mL/min) AND/OR *Sequential Compression Device (SCD) 5 or more Highest Order ONE of the following medications: *Heparin 5000 units SQ TID (Preferred with Epidurals) *Enoxaparin/Lovenox 40 mg SQ daily (WT < 150 kg, CrCl > 30 mL/min) *Enoxaparin/Lovenox 30 mg SQ daily (WT < 150 kg, CrCl > 10-29 mL/min) *Enoxaparin/Lovenox 30 mg SQ BID (WT < 150 kg, CrCl > 30 mL/min) AND *Sequential Compression Device (SCD) Assessment and Plan Assessment and Plan 27 year old female was admitted to observation with elevated troponin after reported chest pain over past 2-3 days and with dehydration and pre-syncopal symptoms. she was eager to go home today and felt back to baseline and will follow up with her primary care dr as an outpt Problem List: (1) Dehydration ICD Codes: E86.0 - Dehydration Status: Acute Plan: had bolus and continued iv fluids until this am IVF and PO hydration Repeated CK with morning labs (2) Abdominal pain ICD Codes: R10.9 - Unspecified abdominal pain Status: Acute Plan: LUQ and LLQ pain on examination, otherwise soft and without peritoneal signs CT abdomen/pelvis normal related to gastroenteritis Will check a lipase level she would get cramping related to the diarrhea which improved and is now gone today (3) Elevated troponin ICD Codes: R74.8 - Abnormal levels of other serum enzymes Status: Acute Plan: EKG noted to be NSR, without acute ST elevations or depressions, noted T- wave inversion in lead V1 Troponins 0.16 -> 0.08 to normal D-dimer within normal limits Considered as potential causes NSTEMI although patient is young without risk factors and no reported cocaine or methamphetamine use, hypoperfusion due to dehydration, hypotension she was dehydrated on admission which likely effected her troponins. chronic renal failure can increase troponins so suspect acute renal failure can do the same thing though there is little data about this. she has no history of exertional chest pain or SOB or other history suggestive of any cardiac problems. she reported migrating myalgias related to her viral illness but no true sustained chest pain Repeat troponin and EKG in 6 hours Check urine toxicology Patient given full dose aspirin in ED No active chest pain (4) Pre-syncope ICD Codes: R55 - Syncope and collapse Status: Acute Plan: due to dehydration, possibly contributed to by a gastroenteritis EKG noted as above Glucose 109 s/p 1L NS bolus in ED Will give additional 1L bolus Continue NS at 100 cc/hr Consult PT Consider syncopal workup to include 2D echo and carotid ultrasound if patient remains symptomatic despite IVF hydration she quickly became non orthostatic and was able to walk to the bathroom and was doing well at the time of discharge (5) Hypokalemia ICD Codes: E87.6 - Hypokalemia Status: Acute Plan: Noted 3.4 Continue to monitor replaced as needed (6) Anemia Status: Acute Plan: Patient with reported heavy menstrual bleeding past 5-6 days Continue to monitor her H/H decreased with hydration. she will be given Fe and advised to follow up as an outpt. if her anemia is Fe deficiency from heavy menstrual bleeding, she should improve with oral contraceptives as well (7) Nutrition, metabolism, and development symptoms ICD Codes: R63.8 - Other symptoms and signs concerning food and fluid intake Status: Acute Plan: Fluids: NS at 100 cc/hr Electrolytes: continue to monitor Nutrition: Regular diet DVT ppx: b/l SCDs, add chemical anticoagulation if anticipating a longer hospital stay GI ppx: not indicated at this time Headache: Tylenol prn pain Problem Qualifiers (1) Abdominal pain: Qualified Codes: R10.84 - Generalized abdominal pain (2) Anemia: Qualified Codes: D64.9 - Anemia, unspecified Angela Rees MD Sep 25, 2017 08:35
[2017-09-25] MEDS ORDERED: FERR325T18 PO (09:06)
--- NOTE | 2017-09-25 09:07 | HHI.DCPOC ---
Discharge Care Plan Diagnosis: (1) Viral gastroenteritis (2) Near syncope (3) Dehydration Goals to Promote Your Health * To prevent worsening of your condition and complications * To maintain your health at the optimal level Directions to Meet Your Goals Take your medications as prescribed Follow your dietary instruction Follow activity as directed Keep your appointments as scheduled Take your immunizations and boosters as scheduled If your symptoms worsen call your PCP, if no PCP go to Urgent Care Center or Emergency Room Smoking is Dangerous to Your Health. Avoid second hand smoke Call the 24-hour hour crisis hotline for domestic abuse at Jaylene Del Valle MD, R3 Sep 25, 2017 09:07
[2017-09-25 09:40] LABS: BICARBONATE 22.1 MEQ/L (21.0-32.0); CALCIUM 8.3 MG/DL (8.5-10.1); CREATININE 0.58 MG/DL (0.50-1.00)
== END 2017-09-25 10:09 | disposition home or self-care (01) ==
LOC: NEPC 20:44 → NEDA 09-24 03:31 → NEPHCDU 09-24 07:40
PROVIDERS: ADMIT Family Medicine; ATTEND Family Medicine
DX: A08.4 Viral intestinal infection, unspecified (principal); R06.02 Shortness of breath; R74.8 Abnormal levels of other serum enzymes; R55 Syncope and collapse; E86.0 Dehydration; E87.6 Hypokalemia; S00.81XA Abrasion of other part of head, initial encounter; D64.9 Anemia, unspecified; M79.1 Myalgia; I45.81 Long QT syndrome; R94.31 Abnormal electrocardiogram [ECG] [EKG]; J45.909 Unspecified asthma, uncomplicated; N18.9 Chronic kidney disease, unspecified; R63.8 Other symptoms and signs concerning food and fluid intake; M54.5 Low back pain; G89.29 Other chronic pain; F31.9 Bipolar disorder, unspecified; F12.90 Cannabis use, unspecified, uncomplicated; F17.210 Nicotine dependence, cigarettes, uncomplicated; Z79.899 Other long term (current) drug therapy; W01.190A Fall on same level from slipping, tripping and stumbling with subsequent striking against furniture, initial encounter
CPT/HCPCS: 71045; 74177; 80048; 80053; 80307; 81001; 82550; 82552; 83690; 83735; 83880; 84484; 84703; 85025; 85379; 93005; 96361; 96372; 96374; 97110; 97116; 97161; 99285; G0378; G8987; G8988; J1650; J2405; J7030; Q9967

== ENCOUNTER 2017-09-27 07:28 | Emergency (ER) | payer OTHER ==
[~2017-09-27] VITALS: Ht 162.6 cm; Wt 60.0 kg
[~2017-09-27 07:28] MED LIST changes: +FERR325T18 PO; -IBUP-232 PO; +LURA20TA PO; +TRAZ50TA12 PO
[2017-09-27 07:31] VITALS: BP 107/66; PULSE 66; RESP 14; TEMP 97.6; O2SAT 100
[2017-09-27 07:52] VITALS: BP 109/64; PULSE 59; RESP 20; TEMP 97.9; O2SAT 100
[2017-09-27] MEDS ORDERED: KETOROLAC TROMETHAMINE 30 MG/ML (IVP) VIAL IV PUSH ONE (08:00)
--- NOTE | 2017-09-27 08:02 | PD ---
HPI Chief Complaint: Chest Pain Time Seen by Provider: 07:48 Travel History International Travel<30 days: No Contact w/Intl Traveler<30days: No Traveled to known affect area: No History of Present Illness HPI 27yo F with PMH of bipolar disorder, asthma here with c/o left sided chest pain since yesterday. Said pain is sharp, worst with coughing and deep breathing. Denies any sob, fever, n/v, abdominal pain, focal weakness or numbness. Pt was just admitted 09/24/17-09/25/17 for observation for dehydration, abdominal pain, elevated troponin. Denies any sudden cardiac deaths in family. +Cig smoker. Denies any cocaine use. Denies any history of PE, DVT, recent immobilization. PFSH Past Medical History Hx Anticoagulant Therapy: No ADHD: Yes Asthma: Yes Blood Disorders: No Bipolar Disorder: Yes Depression: Yes Heart Rhythm Problems: No Cancer: No Cardiovascular Problems: No High Cholesterol: No Chemotherapy: No Chest Pain: No Congestive Heart Failure: No Cerebrovascular Accident: No Diabetes: No Diminished Hearing: No Endocrine: No Genitourinary: No Headaches: No Immune Disorder: No Musculoskeletal: No Neurologic: No Psychiatric: Yes Reproductive: Yes ( vaginal births) Respiratory: No Immunizations Current: Yes Seizures: No Thyroid Disease: No Influenza Vaccination: No ?: Not : 6 Para: 6 Miscarriage: 0 : 1 Past Surgical History Surgical History: No Previous Surgery Section: Yes Hysterectomy: No Social History Alcohol Use: Yes (OCCASIONAL) Tobacco Use: Yes (5 A DAY) Substance Use: Yes (CANNABIS) Allergies-Medications (Allergen,Severity, Reaction): Coded Allergies: No Known Allergies (Verified Adverse Reaction, Unknown, 09/27/17) Per pt. Reported Meds & Prescriptions Reported Meds & Active Scripts Active Ibuprofen 400 Mg Tab 400 Mg PO Q8H PRN Ferrous Sulfate 325 Mg (65 Mg Iron) Tablet 325 Mg PO DAILY Proair Hfa 8.5 GM Inh (Albuterol Sulfate) 90 Mcg/Act Aer 2 Puff INH Q4-6H PRN 108 mcg/actuation Review of Systems Except as stated in HPI: all other systems reviewed are Neg Physical Exam Narrative GENERAL: 27yo F in mild distress. SKIN: Focused skin assessment warm/dry. HEAD: Atraumatic. Normocephalic. EYES: Pupils equal and round. No scleral icterus. No injection or drainage. ENT: No nasal bleeding or discharge. Mucous membranes pink and moist. NECK: Trachea midline. No JVD. CHEST WALL: No rash. +TTP left chest wall. CARDIOVASCULAR: Regular rate and rhythm. No murmur appreciated. RESPIRATORY: No accessory muscle use. Clear to auscultation. Breath sounds equal bilaterally. GASTROINTESTINAL: Abdomen soft, non-tender, nondistended. MUSCULOSKELETAL: No obvious deformities. No clubbing. No cyanosis. No edema. NEUROLOGICAL: Awake and alert. No obvious cranial nerve deficits. Motor grossly within normal limits. Normal speech. PSYCHIATRIC: Appropriate mood and affect; insight and judgment normal. Data Data Last Documented VS Vital Signs Date Time Temp Pulse Resp B/P (MAP) Pulse Ox O2 Delivery O2 Flow Rate FiO2 09/27/17 10:31 09/27/17 07:54 65 09/27/17 07:52 97.9 20 100 Room Air Orders Orders Electrocardiogram (09/27/17 ) Electrocardiogram (09/27/17 07:58) Basic Metabolic Panel (Bmp) (09/27/17 07:58) Complete Blood Count With Diff (09/27/17 07:58) Prothrombin Time / Inr (Pt) (09/27/17 07:58) Act Partial Throm Time (Ptt) (09/27/17 07:58) Troponin I (09/27/17 07:58) Chest, Single Ap (09/27/17 07:58) Ketorolac Inj (Toradol Inj) (09/27/17 08:00) Ed Discharge Order (09/27/17 10:25) Labs Laboratory Tests Test 09/27/17 08:15 White Blood Count 5.0 TH/MM3 Red Blood Count 4.69 MIL/MM3 Hemoglobin 12.5 GM/DL Hematocrit 37.7 % Mean Corpuscular Volume 80.3 FL Mean Corpuscular Hemoglobin 26.7 PG Mean Corpuscular Hemoglobin Concent 33.2 % Red Cell Distribution Width 17.9 % Platelet Count 306 TH/MM3 Mean Platelet Volume 7.3 FL Neutrophils (%) (Auto) 52.3 % Lymphocytes (%) (Auto) 36.6 % Monocytes (%) (Auto) 6.7 % Eosinophils (%) (Auto) 3.6 % Basophils (%) (Auto) 0.8 % Neutrophils # (Auto) 2.6 TH/MM3 Lymphocytes # (Auto) 1.8 TH/MM3 Monocytes # (Auto) 0.3 TH/MM3 Eosinophils # (Auto) 0.2 TH/MM3 Basophils # (Auto) 0.0 TH/MM3 CBC Comment DIFF FINAL Differential Comment Prothrombin Time 10.3 SEC Prothromb Time International Ratio 1.0 RATIO Activated Partial Thromboplast Time 24.9 SEC Blood Urea Nitrogen 17 MG/DL Creatinine 0.79 MG/DL Random Glucose 75 MG/DL Calcium Level 8.5 MG/DL Sodium Level 140 MEQ/L Potassium Level 3.8 MEQ/L Chloride Level 107 MEQ/L Carbon Dioxide Level 24.4 MEQ/L Anion Gap 9 MEQ/L Estimat Glomerular Filtration Rate 106 ML/MIN Troponin I LESS THAN 0.02 NG/ML MDM Medical Decision Making Medical Screen Exam Complete: Yes Emergency Medical Condition: Yes Interpretation(s) EKG: Sinus bradycardia at 58bpm. Normal axis. No ST segment elevation or depression. Differential Diagnosis Musculoskeletal pain vs. pneumonia vs. costochondritis Narrative Course 27yo F with atypical chest pain today. Seems very musculoskeletal. Pt is PERC negative for PE. Labs reviewed, no leukocytosis. Troponin negative. CXR negative. Pt given toradol which helped with pain. Pt requesting work note. Do not feel this is cardiac. Return precautions given. At discharge, pt requesting a prescription for albuterol inhaler as she ran out. Pt is not wheezing or sob. Diagnosis Primary Impression: Atypical chest pain Patient Instructions: General Instructions, Moderate Sedation in Children (ED) Departure Forms: Tests/Procedures, Work Release Enter return to work date: Sep 28, 2017 Additional Instructions: Please follow up with your primary care physician in 1-2 days. Return to the ED if symptoms worsen. Med/Other Pt SpecificInfo: Prescription(s) given Scripts Albuterol 18 GM Inh (Ventolin Hfa 18 GM Inh) 90 Mcg/Act Aer 2 PUFF INH Q4H Y for SHORTNESS OF BREATH, #1 INHALER 0 Refills Prov: Maureen Cha DO 09/27/17 Ibuprofen (Ibuprofen) 400 Mg Tab 400 MG PO Q8H Y for PAIN SCALE 1 TO 4, #20 TAB 0 Refills Prov: Maureen Cha DO 09/27/17 Disposition: 01 DISCHARGE HOME Condition: Stable Maureen Cha DO Sep 27, 2017 08:02
[2017-09-27 08:27] LABS: AUTOMATED NEUTROPHIL # 2.6 TH/MM3 (1.8-7.7); BASOPHIL % 0.8 % (0.0-2.0); EOSINOPHIL # 0.2 TH/MM3 (0-0.4); EOSINOPHIL % 3.6 % (0.0-4.0); HEMATOCRIT 37.7 % (35.0-46.0); HEMOGLOBIN 12.5 GM/DL (11.6-15.3); LYMPH % 36.6 % (9.0-44.0); LYMPHOCYTE # 1.8 TH/MM3 (1.0-4.8); MEAN CELL VOLUME 80.3 FL (80.0-100.0); MEAN CORPUSCULAR HEMOGLOBIN 26.7 PG (27.0-34.0); MEAN CORPUSCULAR HGB CONC 33.2 % (32.0-36.0); MEAN PLATELET VOLUME 7.3 FL (7.0-11.0); MONO % 6.7 % (0.0-8.0); MONOCYTE # 0.3 TH/MM3 (0-0.9); NEUT % 52.3 % (16.0-70.0); PLATELET COUNT 306 TH/MM3 (150-450); RED BLOOD COUNT 4.69 MIL/MM3 (4.00-5.30); RED CELL DISTRIBUTION WIDTH 17.9 % (11.6-17.2)
[2017-09-27 08:35] LABS: PROTHROMBIN TIME - PATIENT 10.3 SEC (9.8-11.6)
[2017-09-27 08:46] LABS: BICARBONATE 24.4 MEQ/L (21.0-32.0); BLOOD UREA NITROGEN 17 MG/DL (7-18); CALCIUM 8.5 MG/DL (8.5-10.1); CHLORIDE 107 MEQ/L (98-107); CREATININE 0.79 MG/DL (0.50-1.00); GLOMERULAR FILTRATION RATE 106 ML/MIN (>89); GLUCOSE,RANDOM 75 MG/DL (74-106); SODIUM (NA) 140 MEQ/L (136-145)
[2017-09-27 08:51] LABS: TROPONIN I LESS THAN 0.02 NG/ML (0.02-0.05)
--- NOTE | 2017-09-27 08:52 | RADRPT ---
EXAM DATE/TIME: 09/27/2017 08:22 [facility] COMPARISON: CHEST SINGLE AP, September 24, 2017, 1:30. INDICATIONS : Chest pain. MEDICAL HISTORY : Asthma. SURGICAL HISTORY : None. ENCOUNTER: Initial ACUITY: 1 day PAIN SCORE: 8/10 LOCATION: Bilateral chest FINDINGS: A single view of the chest demonstrates the lungs to be symmetrically aerated without evidence of mas s, infiltrate or effusion. The cardiomediastinal contours are unremarkable. Osseous structures are intact. CONCLUSION: 1. No acute cardiopulmonary findings. Maximino Curiel MD on September 27, 2017 at 8:49 Board Certified Radiologist. This report was verified electronically.
[2017-09-27] MEDS ORDERED: IBUP1TAB5 PO (10:25)
[2017-09-27] MEDS ORDERED: VENTAER INH (10:44)
--- NOTE | 2017-09-28 13:31 | EKG ---
Date Performed: 09/27/2017 Time Performed: 08:01:38 PTAGE: 27 years EKG: SINUS BRADYCARDIA Since the prior tracing, there has been no significant change BORDERLINE ECG PREVIOUS TRACING : 09/24/2017 08.06 DOCTOR: Rk Padron Interpretating Date/Time 09/28/2017 13:29:40
== END 2017-09-27 10:53 | disposition home or self-care (01) ==
LOC: NEPE 07:28
DX: R07.89 Other chest pain (principal); R00.1 Bradycardia, unspecified; F31.9 Bipolar disorder, unspecified; J45.909 Unspecified asthma, uncomplicated; F90.9 Attention-deficit hyperactivity disorder, unspecified type; F17.200 Nicotine dependence, unspecified, uncomplicated; Z79.899 Other long term (current) drug therapy
CPT/HCPCS: 71045; 80048; 84484; 85025; 85610; 85730; 93005; 96374; 99285; J1885

== ENCOUNTER 2017-10-17 19:00 | Emergency (ER) | payer OTHER ==
[~2017-10-17] VITALS: Ht 167.6 cm; Wt 64.0 kg
[~2017-10-17 19:00] MED LIST changes: -FERRTAB2 PO; +IBUP1TAB5 PO; -LURA20TA PO; -PERI8.6T PO; -TRAZ50TA12 PO; +VENTAER INH
[2017-10-17 19:02] VITALS: BP 125/73; PULSE 101; RESP 16; TEMP 100; O2SAT 100
[2017-10-17] MEDS ORDERED: IBUPROFEN 600 MG TAB PO ONE (21:15)
[2017-10-17] MEDS ORDERED: OSEL75 PO (21:15)
[2017-10-17 21:17] VITALS: PULSE 88; RESP 16; O2SAT 100
--- NOTE | 2017-10-17 21:18 | PD ---
HPI Chief Complaint: Cold / Flu Symptoms Time Seen by Provider: 21:12 Travel History International Travel<30 days: No Contact w/Intl Traveler<30days: No Traveled to known affect area: No History of Present Illness HPI 27-year-old black female presents to emergency department with a one-day history of subjective fever and chills, headache, cough, congestion, sore throat and general malaise. Positive myalgias and arthralgias. She denies any nausea vomiting. No abdominal pain or diarrhea. No dysuria or frequency. Symptoms are moderate. No exacerbating activities. No alleviating activities. She has not taking anything for her fever since 5:00. PFSH Past Medical History Hx Anticoagulant Therapy: No ADHD: Yes Asthma: Yes Blood Disorders: No Bipolar Disorder: Yes Depression: Yes Heart Rhythm Problems: No Cancer: No Cardiovascular Problems: No High Cholesterol: No Chemotherapy: No Chest Pain: No Congestive Heart Failure: No Cerebrovascular Accident: No Diabetes: No Diminished Hearing: No Endocrine: No Genitourinary: No Headaches: No Immune Disorder: No Musculoskeletal: No Neurologic: No Psychiatric: Yes Reproductive: Yes ( vaginal births) Respiratory: Yes (asthma) Immunizations Current: Yes Seizures: No Thyroid Disease: No Tetanus Vaccination: < 5 Years Influenza Vaccination: No ?: Unknown LMP: 10/15/17 : 6 Para: 6 Miscarriage: 0 : 1 Past Surgical History Section: Yes Hysterectomy: No Other Surgery: No Social History Alcohol Use: Yes (OCCASIONAL) Tobacco Use: Yes (5 A DAY) Substance Use: Yes (CANNABIS) Allergies-Medications (Allergen,Severity, Reaction): Coded Allergies: No Known Allergies (Verified Adverse Reaction, Unknown, 10/17/17) Per pt. Reported Meds & Prescriptions Reported Meds & Active Scripts Active Tamiflu (Oseltamivir Phosphate) 75 Mg Cap 75 Mg PO BID 5 Days Ventolin Hfa 18 GM Inh (Albuterol Sulfate) 90 Mcg/Act Aer 2 Puff INH Q4H PRN Ibuprofen 400 Mg Tab 400 Mg PO Q8H PRN Ferrous Sulfate 325 Mg (65 Mg Iron) Tablet 325 Mg PO DAILY Proair Hfa 8.5 GM Inh (Albuterol Sulfate) 90 Mcg/Act Aer 2 Puff INH Q4-6H PRN 108 mcg/actuation Review of Systems Except as stated in HPI: all other systems reviewed are Neg Physical Exam Narrative GENERAL: Well-developed, well-nourished in no apparent distress. Nontoxic appearing. HEAD: Normocephalic, atraumatic. EYES: Pupils equal round and reactive. Extraocular motions intact. No scleral icterus. No injection or drainage. ENT: Nose clear. Throat without erythema, tonsillar hypertrophy or exudate. Uvula midline. Airway patent. NECK: Trachea midline. Supple, nontender, moves head freely. No central bony tenderness or spasm. CARDIOVASCULAR: Regular rate and rhythm without murmurs, gallops, or rubs. RESPIRATORY: Clear to auscultation. Breath sounds equal bilaterally. No wheezes , rales, or rhonchi. GASTROINTESTINAL: Abdomen soft, non-tender, nondistended. No hepato-splenomegaly , or palpable masses. No guarding. EXTREMITIES: No clubbing, cyanosis, or edema. No joint tenderness. BACK: Nontender without deformity. No flank tenderness. NEUROLOGICAL: Awake, alert and oriented x 3 .Cranial nerves grossly intact. Motor and sensory grossly within normal limits. Normal speech. Data Data Last Documented VS Vital Signs Date Time Temp Pulse Resp B/P (MAP) Pulse Ox O2 Delivery O2 Flow Rate FiO2 10/17/17 19:02 100.0 101 16 125/73 (90) 100 Room Air Orders Orders Ed Discharge Order (10/17/17 21:13) Ibuprofen (Motrin) (10/17/17 21:15) MDM Medical Decision Making Medical Screen Exam Complete: Yes Emergency Medical Condition: Yes Medical Record Reviewed: Yes Differential Diagnosis MDM: High Differential diagnoses: Pneumonia, bronchitis, URI, asthma, RAD, legionnaire's disease, SARS, ARDS, influenza, bronchiolitis, RSV,PE,CHF Narrative Course Patient has influenza-like symptoms. She'll be treated with Tamiflu. She is given Motrin 600 mg by mouth. Diagnosis Primary Impression: Influenza-like illness Patient Instructions: General Instructions Departure Forms: Tests/Procedures, Work Release Special Instructions: No work or school 5 days. Additional Instructions: Rest. Increase fluids. Tylenol and Advil. Robitussin-DM. Tamiflu Followup with your DrJan in one week. Return to the ER for any problems. Med/Other Pt SpecificInfo: Prescription(s) given Scripts Oseltamivir (Tamiflu) 75 Mg Cap 75 MG PO BID for Mgmt Viral Infection for 5 Days, #10 CAP 0 Refills Prov: Hernán Estrada MD 10/17/17 Disposition: 01 DISCHARGE HOME Condition: Stable Patrick Martínez Oct 17, 2017 21:18
== END 2017-10-17 21:30 | disposition home or self-care (01) ==
LOC: NEPD 19:00
DX: R05 Cough (principal); J02.9 Acute pharyngitis, unspecified; R53.81 Other malaise; R50.9 Fever, unspecified; J45.909 Unspecified asthma, uncomplicated; F12.90 Cannabis use, unspecified, uncomplicated; Z72.0 Tobacco use
CPT/HCPCS: 99283

== ENCOUNTER 2018-06-30 08:10 | Observation (INO) ==
[2018-06-30] MEDS ORDERED: Ampicillin/Sulbactam Inj 3 GM in Sodium Chloride 0.9% Inj 100 ML IV.SIG ONE (08:38)
[2018-06-30] MEDS ORDERED: Vancomycin Inj 1 GM/200 ML PIGGYBACK IV.SIG ONE (08:38)
[2018-06-30] MEDS ORDERED: Morphine Inj 4 MG/ML Vial IV.PUSH ONE (08:40)
[2018-06-30] MEDS ORDERED: Ketorolac Inj 30 MG/ML (IVP) Vial IV.PUSH ONE (08:40)
[2018-06-30] MEDS: Sod Chloride 0.9% Inj 1,000 ML IV.SIG SCH (08:46)
--- NOTE | 2018-06-30 08:49 | ED ---
HPI General Chief Complaint: Headache Stated Complaint: Head Complaint Time Seen by Provider: 06/30/18 08:24 Source: patient Mode of arrival: ambulatory Limitations: no limitations History of Present Illness HPI Narrative: The patient is a 28-year-old female who presents to the emergency department for a headache. The patient was seen in the emergency department yesterday for left facial cellulitis and swelling. The patient had a CT soft tissue of the facial bones which revealed lymphadenopathy but no obvious abscess. The patient was prescribed Bactrim and discharged home. However, the patient went to the pharmacy and the pharmacy was closed. The patient then awakened this morning with increasing headache on the left aspect of her head that starts in the nose, radiates up to the left maxilla and behind the left eye. The patient complains of photophobia and pain with extraocular movements. The patient denies any fever, however, has been crying secondary to the pain. Symptoms are moderate to severe, pain is currently 9/10. She does note swelling from the inside the left nare but denies any drainage. MD Complaint: Reports headache Onset (ago): hour(s) Onset description: gradual Location: Reports left and frontal Severity: severe Severity scale (1-10): 9 Quality: Reports pulsatile and dull Relieving factors: nothing Exacerbating factors: other Context: Reports occurred at rest Associated symptoms: Reports other Other symptoms: Reports eye pain/redness Treatments prior to arrival: Reports none Related Data Previous Rx's Medication Instructions Recorded sulfamethoxazole-trimethoprim 1 tab PO Q12H #14 tab 06/29/18 [Bactrim DS] Allergies Allergy/AdvReac Type Severity Reaction Status Date / Time No Known Allergies Allergy Verified 06/30/18 08:35 Review of Systems ROS: all other systems reviewed are negative [facility] Medical History Medical History delivery delivered (Acute) Patient denies medical problems (Acute) Social History Social History Substance History: No History of Abuse Smoking Status: Current every day smoker Tobacco Type: Cigarettes How Often Do You Have a Drink Containing Alcohol: Never Recent Travel in [facility] within the Last 8 Weeks: No Recent Out of Country Travel within the Last 8 Weeks: No Immunization History Tetanus Immunization: Unsure Exam Narrative Exam Narrative: GENERAL: Awake, alert, 28-year-old female who is crying upon arrival. SKIN: Focused skin assessment warm/dry. HEAD: Atraumatic. Normocephalic. EYES: Pupils equal and round. 3 mm bilateral and reactive. EOMs are intact. Mild discomfort with extraocular movement. The patient is able to see fingers at a distance of 2 feet without difficulty. ENT: Left facial swelling from the left upper lip into the left nare and over the left maxilla to the left temporal area. There does appear to be a small swollen area in the inside of the left inferior nare but there is no obvious drainage. Tenderness over the affected area with mild erythematous changes. NECK: Trachea midline. No JVD. CARDIOVASCULAR: Regular rate and rhythm. No murmur appreciated. RESPIRATORY: No accessory muscle use. Clear to auscultation. Breath sounds equal bilaterally. GASTROINTESTINAL: Abdomen soft, non-tender, nondistended. MUSCULOSKELETAL: No obvious deformities. No clubbing. No cyanosis. No edema. NEUROLOGICAL: Awake and alert. No obvious cranial nerve deficits. Motor grossly within normal limits. Normal speech. Nonfocal. Oriented x4. PSYCHIATRIC: Appropriate mood and affect; insight and judgment normal. Course Initial Documented Vital Signs Temperature 99.3 F 06/30/18 08:18 Pulse Rate 81 06/30/18 08:18 Respiratory Rate 20 06/30/18 08:18 Blood Pressure 134/69 06/30/18 08:18 Pulse Oximetry 99 06/30/18 08:18 Last Documented Vital Signs Temperature 99.3 F 06/30/18 08:18 Pulse Rate 65 06/30/18 11:15 Respiratory Rate 14 06/30/18 11:15 Blood Pressure 112/59 L 06/30/18 11:15 Pulse Oximetry 98 06/30/18 11:15 Medical Decision Making [facility] Narrative Medical decision making narrative: IV was established, labs are drawn and sent, and the patient was placed on cardiac telemetry monitoring and continuous pulse oximetry monitoring. I did review the patient's laboratory evaluation from yesterday, white count was normal, CT of the face revealed swelling and lymphadenopathy but no visible abscess. However, the patient denies increasing pain, severe headache, mild pain with extraocular movement. This would be worrisome for preseptal cellulitis back potentially, post septal cellulitis. MRI/MRV was obtained to rule out cavernous sinus thrombosis secondary to the infection with sudden headache and pain with left extraocular eye movements. MRI/MRV were negative. The patient was administered Unasyn and vancomycin for left facial cellulitis and would benefit from 23-hour observation for IV antibiotics to assess whether the swelling improves with treatment. The patient will be admitted for IV antibiotics. Medical Screen Exam Complete: Yes Emergency Medical Condition: Yes Differential Diagnosis Differential Diagnosis: Differential diagnosis includes facial cellulitis, preseptal cellulitis, post septal cellulitis, abscess, failed outpatient therapy , sepsis, venous cavernous sinus thrombosis. Lab Data Result diagrams: 06/30/18 08:45 06/30/18 08:45 Lab Results 06/30/18 06/30/18 06/30/18 Range/Units 08:45 08:45 08:45 WBC 10.3 (4.0-11.0) th/mm3 RBC 4.84 (4.00-5.30) mil/mm3 Hgb 12.2 (11.6-15.3) gm/dL Hct 37.3 (35.0-46.0) % MCV 77.1 L (80.0-100.0) fL MCH 25.3 L (27.0-34.0) pg MCHC 32.8 (32.0-36.0) % RDW 17.4 H (11.6-17.2) % Plt Count 292 (150-450) th/mm3 MPV 7.8 (7.0-11.0) fL Neut % (Auto) 71.0 H (16.0-70.0) % Lymph % (Auto) 20.3 (9.0-44.0) % [place] % (Auto) 7.8 (0.0-8.0) % Eos % (Auto) 0.4 (0.0-4.0) % Baso % (Auto) 0.5 (0.0-2.0) % Neut # (Auto) 7.3 (1.8-7.7) th/mm3 Lymph # (Auto) 2.1 (1.0-4.8) th/mm3 [place] # (Auto) 0.8 (0.0-0.9) th/mm3 Eos # (Auto) 0.0 (0.0-0.4) th/mm3 Baso # (Auto) 0.1 (0.0-0.2) th/mm3 WBC Differential . Differential Comment Auto diff final Sodium 137 (136-145) meq/L Potassium 3.6 (3.5-5.1) meq/L Chloride 106 (98-107) meq/L Carbon Dioxide 21.2 (21.0-32.0) meq/L Anion Gap 10 (5-15) meq/L BUN 7 (7-18) mg/dL Creatinine 0.88 (0.50-1.00) mg/dL Estimated GFR Greater than 89 (>89) mL/min Random Glucose 93 (74-106) mg/dL Lactic Acid 1.1 (0.4-2.0) mmol/L Calcium 8.9 (8.5-10.1) mg/dL Total Bilirubin 0.6 (0.2-1.0) mg/dL AST 15 (15-37) U/L ALT 18 (10-53) U/L Alkaline Phosphatase 91 (45-117) U/L Total Protein 8.1 (6.4-8.2) g/dL Albumin 3.9 (3.4-5.0) g/dL Imaging Data Radiologist's impression: Head MRI 06/30/18 08:57 CONCLUSION: 1. No acute hemorrhage, mass or evidence of infarction. 2. Mucosal thickening in the maxillary sinuses right greater than left. Head/Brain Mag Res Venography 06/30/18 10:01 CONCLUSION: 1. Unremarkable intracranial MR venogram. Discharge Plan Discharge Disposition Patient Disposition: 30 Still Patient Discharge Condition Condition: Stable Discharge Details Diagnosis: Cellulitis of face Physicians Team ED Provider: Harinder Kumar Primary Care Provider: UNKNOWN, Rxs /Orders / Referrals /Forms Prescriptions: No Action sulfamethoxazole-trimethoprim [Bactrim DS] 800-160 mg tablet 1 tab PO Q12H Qty: 14 RF: 0 Discharge Interventions Interventions: Vital Signs Last Done: 06/30/18 11:15 Status ED Status: Pending Admission
[2018-06-30 08:58] LABS: Baso # (Auto) 0.1 th/mm3 (0.0-0.2); Baso % (Auto) 0.5 % (0.0-2.0); Eos % (Auto) 0.4 % (0.0-4.0); Hematocrit 37.3 % (35.0-46.0); Hemoglobin 12.2 gm/dL (11.6-15.3); Lymph # (Auto) 2.1 th/mm3 (1.0-4.8); Lymph % (Auto) 20.3 % (9.0-44.0); Mean Corpuscular HGB Conc 32.8 % (32.0-36.0); Mean Corpuscular Hemoglobin 25.3 pg (27.0-34.0); Mean Corpuscular Volume 77.1 fL (80.0-100.0); Mean Platelet Volume 7.8 fL (7.0-11.0); Mono # (Auto) 0.8 th/mm3 (0.0-0.9); Mono % (Auto) 7.8 % (0.0-8.0); Neut # (Auto) 7.3 th/mm3 (1.8-7.7); Platelet Count 292 th/mm3 (150-450); Red Blood Count 4.84 mil/mm3 (4.00-5.30); Red Cell Distribution Width 17.4 % (11.6-17.2); White Blood Count 10.3 th/mm3 (4.0-11.0)
[2018-06-30] MEDS ORDERED: Vancomycin Inj 1,000 MG in Sodium Chlor 0.9% Inj 250 ML IV.SIG ONE (09:00)
[2018-06-30 09:16] LABS: Alanine Aminotransferase 18 U/L (10-53); Alkaline Phosphatase 91 U/L (45-117); Total Protein 8.1 g/dL (6.4-8.2)
[2018-06-30 09:29] LABS: Albumin 3.9 g/dL (3.4-5.0); Anion Gap 10 meq/L (5-15); Aspartate Aminotransferase 15 U/L (15-37); Blood Urea Nitrogen 7 mg/dL (7-18); Calcium 8.9 mg/dL (8.5-10.1); Carbon Dioxide 21.2 meq/L (21.0-32.0); Chloride 106 meq/L (98-107); Glomerular Filtration Rate Greater Than 89 mL/min (>89); Glucose,Random 93 mg/dL (74-106); Potassium 3.6 meq/L (3.5-5.1); Sodium 137 meq/L (136-145)
[2018-06-30] MEDS ORDERED: Gadobutrol PF 10 MMOL/10 ML Vial (for RAD) IV.SIG ONE (10:40)
--- NOTE | 2018-06-30 11:34 | MR ---
EXAM DATE: 06/30/2018 11:02 AM EDT AGE/SEX: 28 years / Female INDICATIONS: Cephalgia. CLINICAL DATA: This is the patient's initial encounter. Patient reports that signs and symptoms have been present for 1 day and indicates a pain score of 3/10. MEDICAL/SURGICAL HISTORY: None. section. COMPARISON: [facility] – [place], V HEAD W & W/O CONTRAST, 06/30/2018. . TECHNIQUE: Multiplanar, multisequence examination of the brain was performed without and with 10 ml G adavist (gadobutrol) contrast as a single exam dose. FINDINGS: Cerebrum: The ventricles are normal for age. No evidence of midline shift, mass lesion, hemorrhage or acute infarction. No extraaxial fluid collections are seen. The pituitary gland and suprasellar cistern are normal in configuration. White Matter: No significant signal abnormalities are seen in the white matter. Posterior Fossa: The cerebellum and brainstem are intact. The 4th ventricle is midline. The cerebel lopontine angle is unremarkable. The cerebellar tonsils are normal in position. Diffusion Imaging: No focal areas of restricted diffusion are seen. No evidence of acute infarction . Extracranial: The visualized portions of the orbits are unremarkable. There is mucosal thickening in the maxillary sinuses right greater than left. Post Contrast: No abnormal areas of parenchymal or dural enhancement. No evidence of blood-brain ba rrier breakdown. CONCLUSION: 1. No acute hemorrhage, mass or evidence of infarction. 2. Mucosal thickening in the maxillary sinuses right greater than left. Electronically signed by: Isidoro Bryant MD 06/30/2018 11:33 AM EDT
--- NOTE | 2018-06-30 11:52 | MR ---
EXAM DATE: 06/30/2018 11:04 AM EDT AGE/SEX: 28 years / Female INDICATIONS: Cephalgia. CLINICAL DATA: This is the patient's initial encounter. Patient reports that signs and symptoms have been present for 1 day and indicates a pain score of 3/10. MEDICAL/SURGICAL HISTORY: None. section. COMPARISON: [facility] – [place], MR HEAD W & W/O CONTRAST, 06/30/2018. . TECHNIQUE: MR cerebral venography is performed without and with 10 ml Gadavist (gadobutrol) contrast (single exam dose). Source images, 3D volume MIP, and sliding thin slab MIP reconstructions were re viewed. FINDINGS: Visualized and deep venous sinuses demonstrate normal signal without focal filling defect. No obvious venous thrombosis is evident. CONCLUSION: 1. Unremarkable intracranial MR venogram. Electronically signed by: Valente Pino MD 06/30/2018 11:51 AM EDT
[2018-06-30] MEDS ORDERED: oxyCODONE/Acetaminophen 10/325 Tablet PO PRN (13:00)
[2018-06-30] MEDS ORDERED: Morphine Inj 4 MG/ML Vial IV.PUSH PRN ×3 (13:00)
[2018-06-30] MEDS ORDERED: Temazepam 15 MG Capsule PO PRN (13:00)
[2018-06-30] MEDS ORDERED: Bisacodyl 10 MG Supp RECTAL PRN (13:00)
[2018-06-30] MEDS ORDERED: Acetaminophen 325 MG Tablet PO PRN (13:00)
[2018-06-30] MEDS ORDERED: Naloxone Inj 0.4 MG/ML Vial IV.PUSH PRN (13:00)
[2018-06-30] MEDS ORDERED: Vancomycin Consult Pharmacy OTHER PRN (13:03)
[2018-06-30] MEDS ORDERED: Vancomycin Consult Pharmacy 1 EACH OTHER SCH (13:15)
[2018-06-30] MEDS: Sod Chloride 0.9% Inj 1,000 ML IV.CONT SCH (13:25)
--- NOTE | 2018-06-30 13:34 | P.HPIM ---
History of Present Illness Service: [facility] Primary Care Physician: UNKNOWN Chief Complaint: HEADACHE AND LEFT FACIAL SWELLING History of Present Illness: Patient is a 28-year-old -[place] female who presented emergency department with a headache. The patient had been seen in the emergency department yesterday for left-sided facial cellulitis and swelling. The patient previously had had a CT of the soft tissues of the facial bones which revealed lymphadenopathy but no obvious abscess. The patient was prescribed Bactrim and discharged home. However the patient went to the pharmacy and the pharmacy was closed so she never took the Bactrim she states she took some amoxicillin that she had at home. Which did not help. Today the patient woke up this morning with increasing headache on the left aspect of her head that started in the nose radiated up in the left maxillary and behind the left eye. Patient complained of photophobia and pain with extraocular movements. The patient denies any fever, however the patient has been crying secondary to pain. Symptoms are more severe. Pain was at least 9 out of 10. Noted some swelling from the inside of the left nare but denies any discharge at this time. Has a pulsatile and dull headache. That has improved with pain medications given here. Past medical history is significant for section. And tobacco abuse Family history significant for diabetes and hypertension in her mother side of the family she does not know anything about her father's side of the family Patient was given a prescription for Bactrim DS but she never filled Patient cannot recall the name of her primary care physician she states she changed Medicaid HMOs and is not sure of which one she has Review of Systems All other systems reviewed negative except as stated in HPI [facility], [facility] - History History Provided By: Patient - Medical History Medical History: Medical History (Last Reviewed 06/30/18 @ 13:28 by Bhavin Swift DO) delivery delivered Patient denies medical problems - Surgical History Surgical History: Surgical History (Last Updated 06/30/18 @ 13:28 by Bhavin Swift DO) Previous section - Family History Family History: Family History (Last Updated 06/30/18 @ 13:28 by Bhavin Swift DO) Other Family history of diabetes mellitus Family history of hypertension - Social History I have reviewed the patient's Social History: Yes - Tobacco History Second Hand Smoke Exposure: Yes Tobacco Use In Past 30 Days: Yes Smoking Status: Current every day smoker Tobacco Type: Cigarettes - Alcohol History How Often Do You Have a Drink Containing Alcohol: Never - Substance Use History Substance History: No History of Abuse - Travel History History of Recent Travel: No Recent Travel in the [place] Within the Last 8 Weeks: No Recent Travel Out of the Country Within the Last 8 Weeks: No - Immunization History Tetanus Immunization: Unsure Medications and Allergies Active Medications: Active Medications Acetaminophen (Tylenol) 650 mg PO Q4H PRN PRN Reason: Temp > 100.4 Al Hydroxide/Mg Hydroxide (Milk Of Magnesia Liq) 30 ml PO Q12H PRN PRN Reason: Mild Constipation Ampicillin Sodium/Sulbactam Sodium (Unasyn Inj) 3 gm IM Q6H [facility] Bisacodyl (Dulcolax Supp) 10 mg RECTAL DAILY PRN PRN Reason: SEVERE CONSITIPATION Sodium Chloride (Ns Inj) 1,000 mls @ 0 mls/hr IV.SIG BOLUS [facility] Last Infusion: 06/30/18 09:44 Dose: Infused Sodium Chloride (Ns Inj) 1,000 mls @ 100 mls/hr IV.CONT .Q10H [facility] Pharmacy Profile Note (Vancomycin Consult Pharmacy) 0 mls @ 0 mls/hr OTHER UNSCH [facility] Ibuprofen (Motrin) 400 mg PO Q6HR PRN PRN Reason: PAIN SCALE 1 TO 2 Lactulose (Lactulose Liq) 30 ml PO DAILY PRN PRN Reason: SEVERE CONSITIPATION Morphine Sulfate (Morphine Inj) 2 mg IV.PUSH Q3H PRN PRN Reason: PAIN 3-5; IF UABLE TO TAKE PO Morphine Sulfate (Morphine Inj) 4 mg IV.PUSH Q3H PRN PRN Reason: PAIN 6-10;IF UNABLE TO TAKE PO Morphine Sulfate (Morphine Inj) 4 mg IV.PUSH Q3H PRN PRN Reason: BREAKTHROUGH PAIN Morphine Sulfate (Morphine Inj) 4 mg IV.PUSH Q1H PRN PRN Reason: Pain Scale 7-10 (Intractable) Naloxone HCl (Narcan Inj) 0.4 mg IV.PUSH UNSCH PRN PRN Reason: SEE LABEL COMMENTS Ondansetron HCl (Zofran Inj) 4 mg IV.PUSH Q6H PRN PRN Reason: NAUSEA OR VOMITING Oxycodone/Acetaminophen (Percocet 10/325 Mg) 1 tab PO Q6H PRN PRN Reason: PAIN SCALE 6 TO 10 Oxycodone/Acetaminophen (Percocet 5/325 Mg) 1 tab PO Q6H PRN PRN Reason: PAIN SCALE 3 TO 5 Senna/Docusate Sodium (Rosamaria-Colace) 1 tab PO BID [facility] Sennosides (Senokot) 17.2 mg PO Q12H PRN PRN Reason: Moderate Constipation Temazepam (Restoril) 15 mg PO HS PRN PRN Reason: INSOMNIA Allergies Allergy/AdvReac Type Severity Reaction Status Date / Time No Known Allergies Allergy Verified 06/30/18 08:35 Exam Vital signs: Vital Signs 06/30/18 08:18 06/30/18 08:33 06/30/18 09:18 Temperature 99.3 F Pulse Rate 81 73 Respiratory Rate 20 18 16 Blood Pressure 134/69 140/72 Pulse Oximetry 99 100 06/30/18 11:15 Temperature Pulse Rate 65 Respiratory Rate 14 Blood Pressure 112/59 L Pulse Oximetry 98 Intake & Output 06/29/18 06/30/18 06/30/18 18:59 06:59 18:59 Intake Total 1350 / 1350 Balance 1350 / 1350 Weight 67.585 kg Intake: IV 1350 / 1350 Unasyn Inj 3 GM In NS Inj 100 100 / 100 ML @ 200 mls/hr IV.SIG ONCE ONE Rx#:[id number] NS Inj 1,000 ML @ Wide Open IV. 1000 / 1000 SIG BOLUS [facility] Rx#:[id number] Vancomycin Inj 1,000 MG In NS 250 / 250 Inj 250 ML @ 250 mls/hr IV.SIG ONCE ONE Rx#:[id number] Other: # Voids 1 Narrative: GENERAL: Awake alert and oriented x3 SKIN: Warm and dry. HEAD: Atraumatic. Normocephalic. EYES: Pupils equal and round. No scleral icterus. No injection or drainage. ENT: No nasal bleeding or discharge. Mucous membranes pink and moist. Left facial swelling from the left upper lip and to left narrowing over the left maxillary to left temporal area. There does appear to be a small swollen area in the inside of the left inferior nare no obvious drainage. Tenderness over the affected area with mild erythematous changes NECK: Trachea midline. No JVD. CARDIOVASCULAR: Regular rate and rhythm. RESPIRATORY: No accessory muscle use. Clear to auscultation. Breath sounds equal bilaterally. GASTROINTESTINAL: Abdomen soft, non-tender, nondistended. Hepatic and splenic margins not palpable. MUSCULOSKELETAL: Extremities without clubbing, cyanosis, or edema. No obvious deformities. NEUROLOGICAL: Awake and alert. No obvious cranial nerve deficits. Motor grossly within normal limits. Five out of 5 muscle strength in the arms and legs. Normal speech. PSYCHIATRIC: Appropriate mood and affect; insight and judgment normal. Results - Labs CBC & Chem 7: 06/30/18 08:45 06/30/18 08:45 Labs: Short CBC 06/30/18 Range/Units 08:45 WBC 10.3 (4.0-11.0) th/mm3 Hgb 12.2 (11.6-15.3) gm/dL Hct 37.3 (35.0-46.0) % Plt Count 292 (150-450) th/mm3 BMP 06/30/18 08:45 Sodium 137 Potassium 3.6 Chloride 106 Carbon Dioxide 21.2 BUN 7 Creatinine 0.88 Calcium 8.9 Liver Function 06/30/18 Range/Units 08:45 Total Bilirubin 0.6 (0.2-1.0) mg/dL AST 15 (15-37) U/L ALT 18 (10-53) U/L Alkaline Phosphatase 91 (45-117) U/L Albumin 3.9 (3.4-5.0) g/dL - Imaging Impressions Head MRI 06/30/18 08:57 CONCLUSION: 1. No acute hemorrhage, mass or evidence of infarction. 2. Mucosal thickening in the maxillary sinuses right greater than left. Head/Brain Mag Res Venography 06/30/18 10:01 CONCLUSION: 1. Unremarkable intracranial MR venogram. Caprini VTE Risk Assessment Caprini VTE Risk Assessment: No/Low Risk (score <= 1) Caprini Risk Assessment Model: Point Value = 1 Point Value = 2 Point Value = 3 Point Value = 5 Age 41-60 Minor surgery BMI > 25 kg/m2 Swollen legs Varicose veins or History of unexplained or recurrent spontaneous Oral contraceptives or hormone replacement Sepsis (< 1 month) Serious lung disease, including pneumonia (< 1 month) Abnormal pulmonary function Acute myocardial infarction Congestive heart failure (< 1 month) History of inflammatory bowel disease Medical patient at bed rest Age 61-74 Arthroscopic surgery Major open surgery (> 45 min) Laparoscopic surgery (> 45 min) Malignancy Confined to bed (> 72 hours) Immobilizing plaster cast Central venous access Age >= 75 History of VTE Family history of VTE Factor V Leiden Prothrombin [id number] Lupus anticoagulant Anticardiolipin antibodies Elevated serum homocysteine Heparin-induced thrombocytopenia Other congenital or acquired thrombophilia Stroke (< 1 month) Elective arthroplasty Hip, pelvis, or leg fracture Acute spinal cord injury (< 1 month) Prophylaxis Regimen: Total Risk Factor Score Risk Level Prophylaxis Regimen 0-1 Low Early ambulation 2 Moderate Order ONE of the following: *Sequential Compression Device (SCD) *Heparin 5000 units SQ BID 3-4 Higher Order ONE of the following medications: *Heparin 5000 units SQ TID *Enoxaparin/Lovenox 40 mg SQ daily (WT < 150 kg, CrCl > 30 mL/min) *Enoxaparin/Lovenox 30 mg SQ daily (WT < 150 kg, CrCl > 10-29 mL/min) *Enoxaparin/Lovenox 30 mg SQ BID (WT < 150 kg, CrCl > 30 mL/min) AND/OR *Sequential Compression Device (SCD) 5 or more Highest Order ONE of the following medications: *Heparin 5000 units SQ TID (Preferred with Epidurals) *Enoxaparin/Lovenox 40 mg SQ daily (WT < 150 kg, CrCl > 30 mL/min) *Enoxaparin/Lovenox 30 mg SQ daily (WT < 150 kg, CrCl > 10-29 mL/min) *Enoxaparin/Lovenox 30 mg SQ BID (WT < 150 kg, CrCl > 30 mL/min) AND *Sequential Compression Device (SCD) Assessment and Plan - Plan Left facial cellulitis-continue on vancomycin and Unasyn IV -Pain control -IV fluids Headache continue on pain medications -Has had MRI and MRV that were negative of her head Left facial cellulitis/preseptal cellulitis/post septal cellulitis/failed outpatient therapy/sepsis/venous cavernous sinus thrombosis -Continue on fluids and IV antibiotics with vancomycin and Unasyn Continue pain control Tobacco abuse recommend smoking cessation Possible fevers but no specific temperatures noted We will continue to follow her throughout the admission continue on prophylaxis with SCDs and BRIAN hose and GI prophylaxis with Pepcid We will continue with a.m. labs. Continue on fluids continue on antibiotics hopefully patient will continue to improve and can be switched to oral antibiotics tomorrow Case has been discussed with the emergency room physician as well as patient's RN Code Status: Full code Discussed Condition With: Discussed with RN and patient and emergency room physician Discharge Planning: Pending improvement of her cellulitis on the left side of her face and the headache
[2018-06-30] MEDS ORDERED: Ampicillin/Sulbactam 3 GM Vial IM SCH (15:00)
[2018-06-30] MEDS: Morphine Sulfate Inj 2 MG/ML Vial IV.PUSH PRN ×3 (15:09→23:56)
[2018-06-30] MEDS: Famotidine 20 MG Tablet PO SCH ×2 (15:47→20:26)
[2018-06-30] MEDS: Ampicillin/Sulbactam Inj 3 GM in Sodium Chloride 0.9% Inj 100 ML IV.SIG SCH ×2 (15:48→20:24)
[2018-06-30] MEDS: Senna/Docusate Sodium 8.6/50 MG Tablet PO SCH (21:11)
[2018-06-30] MEDS: Vancomycin Inj 1,000 MG in Sodium Chlor 0.9% Inj 250 ML IV.SIG SCH (21:29)
[2018-07-01] MEDS: Sod Chloride 0.9% Inj 1,000 ML IV.CONT SCH ×3 (02:55→20:34)
[2018-07-01] MEDS: Ampicillin/Sulbactam Inj 3 GM in Sodium Chloride 0.9% Inj 100 ML IV.SIG SCH ×4 (02:55→21:42)
[2018-07-01] MEDS: Morphine Sulfate Inj 2 MG/ML Vial IV.PUSH PRN ×5 (04:15→21:42)
[2018-07-01 09:12] LABS: Baso % (Auto) 0.3 % (0.0-2.0); Eos # (Auto) 0.1 th/mm3 (0.0-0.4); Eos % (Auto) 0.9 % (0.0-4.0); Hematocrit 32.4 % (35.0-46.0); Hemoglobin 10.5 gm/dL (11.6-15.3); Lymph # (Auto) 1.8 th/mm3 (1.0-4.8); Lymph % (Auto) 28.8 % (9.0-44.0); Mean Corpuscular HGB Conc 32.5 % (32.0-36.0); Mean Corpuscular Hemoglobin 25.5 pg (27.0-34.0); Mean Corpuscular Volume 78.4 fL (80.0-100.0); Mean Platelet Volume 7.7 fL (7.0-11.0); Mono # (Auto) 0.7 th/mm3 (0.0-0.9); Mono % (Auto) 10.8 % (0.0-8.0); Neut # (Auto) 3.8 th/mm3 (1.8-7.7); Neut % (Auto) 59.2 % (16.0-70.0); Platelet Count 221 th/mm3 (150-450); Red Blood Count 4.13 mil/mm3 (4.00-5.30); Red Cell Distribution Width 17.3 % (11.6-17.2); White Blood Count 6.3 th/mm3 (4.0-11.0)
[2018-07-01 09:16] LABS: Albumin 3.1 g/dL (3.4-5.0); Anion Gap 10 meq/L (5-15); Aspartate Aminotransferase 11 U/L (15-37); Blood Urea Nitrogen 5 mg/dL (7-18); Carbon Dioxide 22.5 meq/L (21.0-32.0); Chloride 107 meq/L (98-107); Glomerular Filtration Rate Greater Than 89 mL/min (>89); Glucose,Random 67 mg/dL (74-106); Magnesium 1.8 mg/dL (1.5-2.5); Potassium 3.2 meq/L (3.5-5.1); Sodium 139 meq/L (136-145)
[2018-07-01 09:17] LABS: Alanine Aminotransferase 14 U/L (10-53); Phosphorus 2.6 mg/dL (2.5-4.9)
[2018-07-01 09:26] LABS: Alkaline Phosphatase 78 U/L (45-117); Free T4 (Free Thyroxine) 1.03 ng/dL (0.76-1.46); Thyroid Stimulating Hormone 0.886 uIU/mL (0.358-3.740); Total Protein 6.8 g/dL (6.4-8.2)
[2018-07-01] MEDS: Senna/Docusate Sodium 8.6/50 MG Tablet PO SCH ×2 (09:46→21:51)
[2018-07-01] MEDS: Famotidine 20 MG Tablet PO SCH ×2 (09:47→21:42)
--- NOTE | 2018-07-01 10:08 | P.PN ---
Subjective Interval history: Follow up for left facial cellulitis. Patient reports continued left facial pain, swelling, warmth, worse around the left nare. She reports pain upon movement of her eye, minimally improved compared to yesterday. She had a low- grade fever of 100.0 this morning. She has no other medical complaints at this time. Physical Exam Vital signs: Vital Signs 06/30/18 11:15 06/30/18 13:25 06/30/18 15:12 Temperature 98.3 F Pulse Rate 65 71 63 Respiratory Rate 14 14 20 Blood Pressure 112/59 L 108/58 L 104/64 Pulse Oximetry 98 98 100 06/30/18 20:13 06/30/18 20:25 06/30/18 23:52 Temperature 98.8 F 99.5 F Pulse Rate 77 75 Respiratory Rate 18 15 18 Blood Pressure 121/73 114/60 Pulse Oximetry 99 100 07/01/18 08:00 Temperature 100 F H Pulse Rate 83 Respiratory Rate Blood Pressure 117/63 Pulse Oximetry 20 L Intake & Output 06/30/18 07/01/18 07/01/18 18:59 06:59 18:59 Intake Total 1850 / 1850 1550 / 1550 Balance 1850 / 1850 1550 / 1550 Weight 67.585 kg 67.585 kg Intake: IV 1350 / 1350 1550 / 1550 NS Inj 1,000 ML @ 100 mls/hr IV 1000 / 1000 .CONT .Q10H [facility] Rx#:[id number] Unasyn Inj 3 GM In NS Inj 100 100 / 100 300 / 300 ML @ 200 mls/hr IV.SIG Q6H [facility] Rx#:[id number] NS Inj 1,000 ML @ Wide Open IV. 1000 / 1000 SIG BOLUS [facility]LE Rx#:[id number] Vancomycin Inj 1,000 MG In NS 250 / 250 250 / 250 Inj 250 ML @ 250 mls/hr IV.SIG Q12H [facility] Rx#:[id number] Oral 500 / 500 Other: # Voids 1 Narrative: GENERAL: Well-nourished, well-developed young female patient in [facility]. SKIN: Warm and dry. Diffuse left facial edema that extends from the left upper lip/nose, left maxillary and left temporal area; tender to palpation, with an area of erythema at the inner left inferior nare. HEENT: Normocephalic. Atraumatic. Pupils equal and round. Mucous membranes pink and moist. NECK: Supple. Trachea midline. Nontender. CARDIOVASCULAR: Regular rate and rhythm. No murmur appreciated. RESPIRATORY: No accessory muscle use. Clear to auscultation. Breath sounds equal bilaterally. GASTROINTESTINAL: Abdomen soft, non-tender, nondistended. Normoactive bowel sounds x4. MUSCULOSKELETAL: No obvious deformities. Extremities without clubbing, cyanosis , or edema. NEUROLOGICAL: Awake and alert. No obvious cranial nerve deficits. Motor grossly within normal limits. Moving all extremities spontaneously. Normal speech. PSYCHIATRIC: Appropriate mood and affect; insight and judgment normal. Results - Labs CBC & Chem 7: 07/01/18 08:32 07/01/18 08:32 Laboratory Results - last 24 hr 07/01/18 07/01/18 08:32 08:32 WBC 6.3 RBC 4.13 Hgb 10.5 L Hct 32.4 L MCV 78.4 L MCH 25.5 L MCHC 32.5 RDW 17.3 H Plt Count 221 MPV 7.7 Neut % (Auto) 59.2 Lymph % (Auto) 28.8 [place] % (Auto) 10.8 H Eos % (Auto) 0.9 Baso % (Auto) 0.3 Neut # (Auto) 3.8 Lymph # (Auto) 1.8 [place] # (Auto) 0.7 Eos # (Auto) 0.1 Baso # (Auto) 0.0 WBC Differential . Differential Comment Auto diff final Sodium 139 Potassium 3.2 L Chloride 107 Carbon Dioxide 22.5 Anion Gap 10 BUN 5 L Creatinine 0.64 Estimated GFR Greater than 89 Random Glucose 67 L Calcium 8.0 L D Phosphorus 2.6 Magnesium 1.8 Total Bilirubin 0.6 AST 11 L ALT 14 Alkaline Phosphatase 78 Total Protein 6.8 D Albumin 3.1 L D TSH 0.886 Free T4 1.03 - Imaging Impressions Head MRI 06/30/18 08:57 CONCLUSION: 1. No acute hemorrhage, mass or evidence of infarction. 2. Mucosal thickening in the maxillary sinuses right greater than left. Head/Brain Mag Res Venography 06/30/18 10:01 CONCLUSION: 1. Unremarkable intracranial MR venogram. Assessment and Plan - Plan 28-year-old female with no significant past medical history presents with left- sided facial swelling and headache. Acute Left facial/preseptal cellulitis: recent ER visit for the same, discharge on Bactrim however patient was unable to fill prescription -Brain MRI shows Mucosal thickening in the maxillary sinuses right greater than left; no reported abscess -MRV head unremarkable -CT soft tissue neck showed few small lymph nodes bilaterally -Blood cultures collected and pending -Continue antibiotics with IV vancomycin and IV Unasyn -Continue pain control and IVF hydration Headache: suspect secondary to above infection -imaging as above unremarkable -continue on pain medications Tobacco abuse: chronic -counseled on cessation DVT Prophylaxis: teds/SCDs Discharge Planning: Not yet ready for discharge, pending further clinical improvement. Possible discharge 07/02 if improved.
[2018-07-01] MEDS: Vancomycin Inj 1,000 MG in Sodium Chlor 0.9% Inj 250 ML IV.SIG SCH ×2 (10:39→22:50)
[2018-07-01] MEDS: Sod Chloride 0.9% Inj 1,000 ML IV.SIG SCH ×2 (10:41→13:04)
[2018-07-01 11:20] LABS: Hemoglobin A1c 5.2 % (4.3-6.0)
[2018-07-01] MEDS ORDERED: Pharmacy Ordered Lab Info OTHER ONE (20:45)
[2018-07-02] MEDS ORDERED: Vancomycin Inj 500 MG in Sodium Chlor 0.9% Inj 100 ML IV.SIG ONE ×2
[2018-07-02] MEDS: Ibuprofen 400 MG Tablet PO PRN ×2 (01:38→10:03)
[2018-07-02] MEDS: Ampicillin/Sulbactam Inj 3 GM in Sodium Chloride 0.9% Inj 100 ML IV.SIG SCH ×2 (03:00→10:02)
[2018-07-02] MEDS: Sod Chloride 0.9% Inj 1,000 ML IV.CONT SCH (04:50)
[2018-07-02] MEDS: Senna/Docusate Sodium 8.6/50 MG Tablet PO SCH (10:03)
[2018-07-02] MEDS: Famotidine 20 MG Tablet PO SCH (10:03)
--- NOTE | 2018-07-02 10:07 | P.DS ---
Date of admission: 06/30/18 13:05 Primary care physician: UNKNOWN Brief History from admission: Patient is a 28-year-old -English female who presented emergency department with a headache. The patient had been seen in the emergency department yesterday for left-sided facial cellulitis and swelling. The patient previously had had a CT of the soft tissues of the facial bones which revealed lymphadenopathy but no obvious abscess. The patient was prescribed Bactrim and discharged home. However the patient went to the pharmacy and the pharmacy was closed so she never took the Bactrim she states she took some amoxicillin that she had at home. Which did not help. Today the patient woke up this morning with increasing headache on the left aspect of her head that started in the nose radiated up in the left maxillary and behind the left eye. Patient complained of photophobia and pain with extraocular movements. The patient denies any fever, however the patient has been crying secondary to pain. Symptoms are more severe. Pain was at least 9 out of 10. Noted some swelling from the inside of the left nare but denies any discharge at this time. Has a pulsatile and dull headache. That has improved with pain medications given here. Past medical history is significant for section. And tobacco abuse Family history significant for diabetes and hypertension in her mother side of the family she does not know anything about her father's side of the family Patient was given a prescription for Bactrim DS but she never filled because pharmacy was closed. Patient cannot recall the name of her primary care physician she states she changed Medicaid HMOs and is not sure of which one she has Patient update on day of discharge: Follow up for left facial cellulitis. The patient reports significant improvement of left facial erythema/edema/pain overnight. Denies fevers/chills. She wants to go home. She plans to fill her prescriptions at [employer] where she works. DS: Diagnosis - Discharge Diagnosis (1) Cellulitis of face Status: Acute DS: Medications - Discharge Medications Prescriptions: amoxicillin-pot clavulanate [Augmentin] 1 tab PO Q12H 10 Days #20 tab guaifenesin [Mucinex] 600 mg PO BID 10 Days #20 tab sulfamethoxazole-trimethoprim [Bactrim DS] 1 tab PO Q12H 10 Days #20 tab DS: Summary Hospital Course: 28-year-old female with no significant past medical history presents with left- sided facial swelling and headache. Acute Left facial/preseptal cellulitis: recent ER visit for the same, discharge on Bactrim however patient was unable to fill prescription due to pharmacy being closed. Brain MRI shows Mucosal thickening in the maxillary sinuses right greater than left; no reported abscess. MRV head unremarkable. CT soft tissue neck showed few small lymph nodes bilaterally. Blood cultures with NGTD. Given antibiotics with IV vancomycin and IV Unasyn. Given pain control and IVF hydration. Symptoms significantly improved, patient remained afebrile. Discharged on Bactrim and Augmentin [id number]. - Time Spent with Patient Total time spent providing and/or coordinating discharge services: Less than 30 minutes - Quality: VTE Deep Vein Thrombosis/Pulmonary Embolism Present on Admission: Yes Exam Vital signs: Vital Signs 07/01/18 12:00 07/01/18 16:00 07/01/18 20:00 Temperature 98.6 F 97.8 F 98.2 F Pulse Rate 66 65 64 Respiratory Rate 18 18 18 Blood Pressure 108/65 114/66 114/68 Pulse Oximetry 96 97 100 07/01/18 23:23 07/02/18 04:59 07/02/18 08:00 Temperature 98.2 F 97.6 F Pulse Rate 70 73 Respiratory Rate 18 15 16 Blood Pressure 107/71 115/74 Pulse Oximetry 100 100 Intake & Output 07/01/18 07/02/18 07/02/18 18:59 06:59 18:59 Intake Total 3630 / 3630 1550 / 1550 Balance 3630 / 3630 1550 / 1550 Intake: IV 2350 / 2350 1550 / 1550 NS Inj 1,000 ML @ 100 mls/hr IV 1000 / 1000 1000 / 1000 .CONT .Q10H [facility] Rx#:[id number] Unasyn Inj 3 GM In NS Inj 100 100 / 100 200 / 200 ML @ 200 mls/hr IV.SIG Q6H [facility] Rx#:[id number] NS Inj 1,000 ML @ Wide Open IV. 1000 / 1000 SIG BOLUS DANIELLE Rx#:[id number] Vancomycin Inj 1,000 MG In NS 250 / 250 250 / 250 Inj 250 ML @ 250 mls/hr IV.SIG Q12H [facility] Rx#:[id number] Vancomycin Inj 500 MG In NS Inj 100 / 100 100 ML @ 200 mls/hr IV.SIG ONCE ONE Rx#:[id number] Oral 1280 / 1280 Other: # Voids 3 Narrative: GENERAL: Well-nourished, well-developed young female patient in [facility]. SKIN: Warm and dry. Minimal left facial fullness/edema however significantly improved, now nonerythematous, nontender, no warmth. Minimal area of erythema at inner left inferior nare, also much improved. HEENT: Normocephalic. Atraumatic. Pupils equal and round. Mucous membranes pink and moist. NECK: Supple. Trachea midline. Nontender. CARDIOVASCULAR: Regular rate and rhythm. No murmur appreciated. RESPIRATORY: No accessory muscle use. Clear to auscultation. Breath sounds equal bilaterally. GASTROINTESTINAL: Abdomen soft, non-tender, nondistended. Normoactive bowel sounds x4. MUSCULOSKELETAL: No obvious deformities. Extremities without clubbing, cyanosis , or edema. NEUROLOGICAL: Awake and alert. No obvious cranial nerve deficits. Motor grossly within normal limits. Moving all extremities spontaneously. Normal speech. PSYCHIATRIC: Appropriate mood and affect; insight and judgment normal. Results Procedures completed during hospitalization: None. Labs on day of discharge: Labs from last 24 hours 07/01/18 07/01/18 21:10 08:32 Hemoglobin A1c 5.2 Vancomycin Trough 7.8 Preliminary micro results at discharge 06/30/18 08:45 Aerobic Blood Culture - Preliminary Blood - Peripheral No growth in 1 day Anaerobic Blood Culture - Preliminary No growth in 1 day 06/30/18 08:40 Aerobic Blood Culture - Preliminary Blood - Peripheral No growth in 1 day Anaerobic Blood Culture - Preliminary No growth in 1 day - Impressions ITS Impressions Head MRI 06/30/18 08:57 CONCLUSION: 1. No acute hemorrhage, mass or evidence of infarction. 2. Mucosal thickening in the maxillary sinuses right greater than left. Head/Brain Mag Res Venography 06/30/18 10:01 CONCLUSION: 1. Unremarkable intracranial MR venogram. Discharge Plan - Discharge Disposition Patient Disposition: Discharge Home - Discharge Condition Condition: Stable - Discharge Order Discharge Orders: Discharge Order (Routine); Ordered 07/02/18 Ordered By: Karolina Boone - Discharge Details Anticipated Discharge Date: 07/02/18 - Physicians Team Primary Care Provider: UNKNOWN, Attending Provider: Deisy Hallman
[2018-07-02] MEDS ORDERED: guaiFENesin 600 MG ER Tablet PO SCH (10:15)
[2018-07-02] MEDS ORDERED: Vancomycin Inj 1,250 MG in Sodium Chlor 0.9% Inj 250 ML IV.SIG SCH (12:00)
[2018-07-03] MEDS ORDERED: Pharmacy Ordered Lab Info OTHER ONE (11:45)
== END 2018-07-02 11:11 | disposition home or self-care (01) ==
LOC: NEPE 08:10 → NEDA 08:10 → NEPHCDU 13:57
PROVIDERS: ADMIT Hospitalist; ATTEND Hospitalist